=== PATIENT | female | born 1935 | race Caucasian/White ===

== ENCOUNTER 2017-10-07 08:15 | Emergency (ER) | payer MEDICARE ==
[2017-10-07 09:43] LABS: ABS Basophils 0.1 10^3/ul (0-0.2); ABS Eosinophils 0.2 10^3/ul (0-0.6); ABS Lymphocytes 1.2 10^3/ul (1.0-4.8); ABS Monocytes 0.6 10^3/ul (0-0.8); ABS Neutrophils 4.5 10^3/ul (1.5-7.7); ABS Nucleated RBC 0 10^3/ul; Eosinophil % 2.4 % (0-6); Hematocrit 37 % (35-47); Hemoglobin 12.6 g/dl (12.0-16.0); Lymphocyte % 18.1 % (25-47); Mean Corpuscular HGB Conc 34 g/dl (31-36); Mean Corpuscular Hemoglobin 32 pg (27-31); Mean Corpuscular Volume 93 fL (80-97); Mean Platelet Volume 7 um3 (7.4-10.4); Nucleated Red Blood Cells % 0.2; Platelet Count 246 10^3/ul (150-450); Red Blood Count 3.96 10^6/ul (4.0-5.4); Red Cell Distribution Width 14 % (10.5-15); White Blood Count 6.4 10^3/ul (3.5-10.8)
[2017-10-07 09:57] LABS: EGFR Non-African American 113.2 (>60)
[2017-10-07 10:10] LABS: INR 0.92 (0.77-1.02)
[2017-10-07 11:55] VITALS: BP 135/70
--- NOTE | 2017-10-08 17:40 | ED ---
Blake Mireles Angela, scribed for Glynn Han MD on 10/07/17 at 0839 . Throat Pain/Nasal Congestion - HPI Summary HPI Summary: This pt is a 82 y/o female presenting to [facility] via EMS c/o epistaxis since this morning at approximately 08:00. Pt reports her epistaxis began after she blew her nose. She notes bleeding from her left nostril. Pt denies any lightheadedness, dizziness, or SOB. Denies taking any anticoagulants. - History of Current Complaint Hx Obtained From: Patient Onset/Duration: Lasting Minutes, Still Present Severity: Moderate Associated Signs And Symptoms: Positive: Negative Cough: None - Allergies/Home Medications Allergies/Adverse Reactions: Allergies Allergy/AdvReac Type Severity Reaction Status Date / Time MS Lactose Intolerance Allergy Diarrhea Verified 11/12/16 11:49 [Lactose Intolerance] MS Metoprolol [Metoprolol] Allergy PSORASIS Verified 11/12/16 11:49 RASH PMH/Surg Hx/FS Hx/Imm Hx Endocrine/Hematology History: Denies: Hx Diabetes Cardiovascular History: Reports: Hx Deep Vein Thrombosis, Hx Hypercholesterolemia, Hx Hypertension, Other Cardiovascular Problems/Disorders - 1961 AND 1962 PHLEBITIS AFTER CHILDBIRTH RIGHT LEG Denies: Hx Pacemaker/ICD Respiratory History: Reports: Hx Chronic Obstructive Pulmonary Disease (COPD), Other Respiratory Problems/Disorders - RESPIRATORY INFECTION 3 YEARS AGO GI History: Reports: Other GI Disorders - LACTOSE INTOLERANT History: Denies: Hx Renal Disease Musculoskeletal History: Reports: Hx Arthritis - RIGHT HAND, BILATERAL TOES, Other Musculoskeletal History - BONE SPURS ON CERVICAL VERTEBRAE Sensory History: Reports: Hx Contacts or Glasses Denies: Hx Hearing Aid Opthamlomology History: Reports: Hx Contacts or Glasses Neurological History: Reports: Other Neuro Impairments/Disorders - Idiopathic neuropathy Psychiatric History: Denies: Hx Panic Disorder - Cancer History Cancer Type, Location and Year: 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 MYXOIDSARCOMA Hx Chemotherapy: No Hx Radiation Therapy: Yes - Surgical History Surgery Procedure, Year, and Place: 2004 lumpectomy left breast, [facility] [place]. 1953 TONSILLECTOMY, [facility]. 1987 HYSTERECTOMY, [place]. 2002 LEFT CATARACT EXTRACTION WITH IOL IMPLANT,. SKIN CANCER - BASAL CELL AND SQAMOUS CELL , OFFICE. 2013 - Rt CATARACT Hx Anesthesia Reactions: No - Immunization History Date of Tetanus Vaccine: unknown Date of Influenza Vaccine: 2012 Infectious Disease History: No Infectious Disease History: Denies: Traveled Outside the [place] in Last 30 Days - Family History Known Family History: Positive: Hypertension - Social History Alcohol Use: Daily Alcohol Amount: glass of wine Substance Use Type: Reports: None Smoking Status (MU): Former Smoker Type: Cigarettes Review of Systems Negative: Fever, Chills Positive: Epistaxis Negative: Shortness Of Breath Skin: Negative Neurological: Negative All Other Systems Reviewed And Are Negative: Yes Physical Exam - Summary Physical Exam Summary: VITAL SIGNS: Reviewed. GENERAL: Patient is a well-developed and nourished female who is lying comfortable in the stretcher. Patient is not in any acute respiratory distress. Pt is not on anticoagulants. HEAD AND FACE: No signs of trauma. No ecchymosis, hematomas or skull depressions. No sinus tenderness. Pt was bleeding from left nostril, which now has dried blood. There is no active bleeding currently. EYES: PERRLA, EOMI x 2, No injected conjunctiva, no nystagmus. EARS: Hearing grossly intact. Ear canals and tympanic membranes are within normal limits. MOUTH: Oropharynx within normal limits. NECK: Supple, trachea is midline, no adenopathy, no JVD, no carotid bruit, no c- spine tenderness, neck with full ROM. CHEST: Symmetric, no tenderness at palpation LUNGS: Clear to auscultation bilaterally. No wheezing or crackles. CVS: Regular rate and rhythm, S1 and S2 present, no murmurs or gallops appreciated. ABDOMEN: Soft, non-tender. No signs of distention. No rebound no guarding, and no masses palpated. Bowel sounds are normal. EXTREMITIES: FROM in all major joints, no edema, no cyanosis or clubbing. NEURO: Alert and oriented x 3. No acute neurological deficits. Speech is normal and follows commands. SKIN: Dry and warm Triage Information Reviewed: Yes Vital Signs On Initial Exam: Initial Vitals Temp Pulse Resp BP Pulse Ox 98.8 F 98 16 141/66 95 10/07/17 08:21 10/07/17 08:21 10/07/17 08:21 10/07/17 08:21 10/07/17 08:21 Vital Signs Reviewed: Yes Diagnostics - Vital Signs Vital Signs Temp Pulse Resp BP Pulse Ox 10/07/17 08:21 98.8 F 98 16 141/66 95 - Laboratory Lab Results: Lab Results 10/07/17 10/07/17 10/07/17 Range/Units 09:33 09:33 09:33 WBC 6.4 (3.5-10.8) 10^3/ul RBC 3.96 L (4.0-5.4) 10^6/ul Hgb 12.6 (12.0-16.0) g/dl Hct 37 (35-47) % MCV 93 (80-97) fL MCH 32 H (27-31) pg MCHC 34 (31-36) g/dl RDW 14 (10.5-15) % Plt Count 246 (150-450) 10^3/ul MPV 7 L (7.4-10.4) um3 Neut % (Auto) 69.5 (38-83) % Lymph % (Auto) 18.1 L (25-47) % Clark % (Auto) 9.0 (1-9) % Eos % (Auto) 2.4 (0-6) % Baso % (Auto) 1.0 (0-2) % Absolute Neuts (auto) 4.5 (1.5-7.7) 10^3/ul Absolute Lymphs (auto) 1.2 (1.0-4.8) 10^3/ul Absolute Monos (auto) 0.6 (0-0.8) 10^3/ul Absolute Eos (auto) 0.2 (0-0.6) 10^3/ul Absolute Basos (auto) 0.1 (0-0.2) 10^3/ul Absolute Nucleated RBC 0 10^3/ul Nucleated RBC % 0.2 INR (Anticoag Therapy) 0.92 (0.77-1.02) APTT 31.8 (26.0-36.3) seconds Sodium 137 (133-145) mmol/L Potassium 3.7 (3.5-5.0) mmol/L Chloride 101 (101-111) mmol/L Carbon Dioxide 31 (22-32) mmol/L Anion Gap 5 (2-11) mmol/L BUN 13 (6-24) mg/dL Creatinine 0.52 (0.51-0.95) mg/dL Est GFR ( Amer) 145.6 (>60) Est GFR (Non-Af Amer) 113.2 (>60) BUN/Creatinine Ratio 25.0 H (8-20) Glucose 101 H (70-100) mg/dL Calcium 9.6 (8.6-10.3) mg/dL Total Bilirubin 0.50 (0.2-1.0) mg/dL AST 14 (13-39) U/L ALT 10 (7-52) U/L Alkaline Phosphatase 73 (34-104) U/L Total Protein 6.6 (6.4-8.9) g/dL Albumin 4.1 (3.2-5.2) g/dL Globulin 2.5 (2-4) g/dL Albumin/Globulin Ratio 1.6 (1-3) Result Diagrams: 10/07/17 09:33 10/07/17 09:33 Lab Statement: Any lab studies that have been ordered have been reviewed, and results considered in the medical decision making process. Re-Evaluation - Re-Evaluation First Eval Re-Evaluation Time: 10:17 Comment: Joined tongue blades removed from nose. Pt is without active bleeding. EENT Course/Dx - Course Course Of Treatment: This pt is a 82 y/o female presenting to [facility] via EMS c/o epistaxis since this morning at approximately 08:00. Pt reports her epistaxis began after she blew her nose. She notes bleeding from her left nostril. Pt denies any lightheadedness, dizziness, or SOB. Denies taking any anticoagulants. Test results without any significant abnormalities. Since arrival, pts epistaxis has resolved. The pt was observed for a couple of hours in the ED and the epistaxis did not return. Therefore she will be discharged home with follow up from her PCP. Pt is hemodynamically stable, alert and oriented x3. - Differential Diagnoses Differential Diagnoses: Epistaxis, Foreign Body, Sinusitis - Diagnoses Provider Diagnoses: Epistaxis Discharge - Discharge Plan Condition: Stable Disposition: HOME Patient Education Materials: Nosebleed (ED) Referrals: Rajinder Pearson MD [Primary Care Provider] - 3 Days Additional Instructions: Please follow up with your primary care provider. RETURN TO THE ED FOR ANY WORSENING SYMPTOMS. The documentation as recorded by the Blake appiah Angela accurately reflects the service I personally performed and the decisions made by , Glynn Han MD.
== END 2017-10-07 11:53 | disposition home or self-care (01) ==
LOC: ED 08:15
DX: R04.0 Epistaxis (principal); Z87.891 Personal history of nicotine dependence; Z88.8 Allergy status to other drugs, medicaments and biological substances
CPT/HCPCS: 36415; 80053; 85025; 85610; 85730; 99282

== ENCOUNTER 2017-10-10 15:21 | Emergency (ER) | payer MEDICARE ==
--- OUTSIDE RECORDS SUMMARY | 2017-10-10 15:57 | XMS REPORT ---
:1935 External Reference #:[id number] Author Organization [facility] Address [address] [place] [address] Phone [phone] Care Team Providers Name Role Phone Elle Pearson MD Care Team Information Hand I Cutter Unavailable Elle Pearson MD Primary Care Physician Unavailable Payers Type Date Identification Numbers Payment Provider Subscriber Commercial Effective: Policy Number: [employer] Gustavo Devlin 2016 [id number] Group Number: [id number] [address] [id number] PayID: [id number] [place] [address] Problems Date Description Provider Status Onset: 07/01/2011 Disorder of skin Ellyn White M.D. Active Onset: 07/24/2011 Counseling Ellyn White M.D. Active Onset: 12/23/2011 Benign essential hypertension Elle Pearson M.D. Active Onset: 12/23/2011 Palpitations Elle Pearson M.D. Active Onset: 03/18/2012 Eruption Elle Pearson M.D. Active Onset: 05/15/2012 Hyperlipidemia Elle Pearson M.D. Active Onset: 11/19/2012 Cataract Elle Pearson M.D. Active Onset: 01/12/2013 Flatulence, eructation and gas pain Elle Pearson M.D. Active Onset: 07/13/2013 Dyspnea Elle Pearson M.D. Active Onset: 09/07/2014 Acute bronchitis Elle Pearson M.D. Active Onset: 09/19/2014 Cough Elle Pearson M.D. Active Onset: 07/15/2015 Essential hypertension Elle Pearson M.D. Active Onset: 07/15/2015 Skin sensation disturbance Elle Pearson M.D. Active Onset: 11/13/2015 Allergic rhinitis Elle Pearson M.D. 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 Social History Type Date Description Comments Cigarette Use Former Cigarette Smoker Smoking Patient is a former smoker Allergies, Adverse Reactions, Alerts Date Description Reaction Status Severity Comments 05/15/2012 Metoprolol RASH active 04/19/2014 Lactulose active Medications Medication Date Status Form Strength Qnty SIG Indications Ordering Provider Oxygen Therapy 04/02 Active needs Elle Perez /2016 portable yessenia Pearsona Byron tor for her o2 Ventolin HFA 05/27 Active Aerosol 108(90Bas 17uni 1 puff q Elle Perez e) ts 4hrsprn Lili, mcg/Act M.DKarena Symbicort 11/12 Active Aerosol 160-4.5mc 1unit 1 puff Yeny Ruth g/Act s twice a Damian, COMMUNICATION AND OUTREACH MANAGER day Potassium 03/18 Active Tablets ER 10Meq 90tab take 1 Elle Perez Chloride ER s tablet Breiman, daily M.DKarena Hydrochlorothiazi 03/18 Active Tablets 25mg 90tab Take 1 Elle Perez de s Tablet Breiman, Daily M.DKarena Centrum Silver 02/13 Active Tablets 1 po qd Family /[facility] Clobetasol Active Ointment 0.05% apply to Unknown Propionate /0000 affected area bid Naproxen 01/23 Hx Tablets 500mg 60tab 1 by Jonelle /2016 s mouth Mercedes, - twice a AUDIO VIDEO REPAIRER 02/27 day with food Tamiflu 09/24 Hx Capsules 75mg 10cap 1 by Tanvir Burton /2016 s mouth Lidia, - twice M.D. 01/23 Nebulizer With 09/24 Hx J44.1 Марина Burton Tubing And Mouth /2016 Lidia, Piece - M.D. 02/27 Xopenex 09/24 Hx Nebulizer 0.31mg/3M 72ml use J44.1 Марина L. /2016 L nebulizer Lidia, - every 4 M.D. 02/27 hours needed for wheezing, cough Clotrimazole 08/05 Hx Lozenges 10mg 40uni one Everette A. ts lozenge 4 Darlow, - times a M.D. 01/23 day 10 days Spiriva 05/27 Hx Capsules 18mcg 90cap inhale Elle Perez [employer] /2015 s the Breiman, - contents M.D. 06/26 of capsule in the handihale r once daily Prednisone 05/27 Hx Tablets 10mg 30tab 2 twice a Elle Chris s day x 3 Breiman, - days then M.D. 06/26 2 in the morning, 1 at night x 3 days then 1 twice a day x 3 days then 1 every day x 3 Benzonatate 05/27 Hx Capsules 100mg 30cap 1 by Elle Perez s mouth Lydiaimajerrica, - twice M.D. 06/26 daily Fluticasone 04/25 Hx Suspension 50mcg/Act 48gm 2 sprays H69.83 Jacki Propionate in each [facility], COMMUNICATION AND OUTREACH MANAGER - nostril 05/27 everyday Prevnar 13 04/18 Hx Suspension .5ml Inject Elle J. one dose Lili, - M.D. 04/25 Spacer For Mdi 01/17 Hx 1unit for use Elle Chris /2015 s with Lili, - symbicort M.D. 04/25 inhaler /2015 Handicap [address]ing 12/21 Hx needed Elle J. Permit due to: Lili, - arthritis M.D. 02/27 permanent /2017 ly dt Claritin 11/12 Hx Capsules 10mg 30cap use 1 by H69.83 Elle Perez s mouth q.d Lili, - M.D. 05/27 Proair HFA 09/18 Hx Aerosol 108(90Bas 1unit 2 puffs Elle Perez /2015 e) s every 4 Lydiaimajerrica, - mcg/Act hours as M.D. 11/12 needed Zithromax Z-Josafat 09/11 Hx Tablets 250mg 1Pack as Elle Perez Anders Corral M.D. 09/18 Medrol (Josafat) 09/11 Hx Tablets 4mg 1tabs use as Elle Perez Anders Corrla M.D. 09/18 Amlodipine 07/15 Hx Tablets 5mg 90tab 1 by Elle Conley /2014 s mouth Lili, - every day M.DKarena 11/12 Zithromax Z-Josafat 09/07 Hx Tablets 250mg 1Pack as Elle Perez Anders Corral M.D. 09/19 Amlodipine 08/10 Hx Tablets 2.5mg 90tab 1 by Elle Conley /2013 s mouth Lili, - every day M.DKarena 07/15 Lisinopril 04/19 Hx Tablets 5mg 30tab 1 po qd Elle Perez /2013 s Anders Pearson M.D. 05/11 Metoprolol 01/12 Hx Tablets ER 25mg 90tab / po Elle Perez Succinate ER /2011 24HR s bid Anders Pearson M.D. 03/18 Metoprolol 12/22 Hx Tablets 12.5 30tab take 1 Elle Perez Tartrate /2011 s tablet by Anders Pearson M.DKarena 01/12 twice a day Clobetasol 07/24 Hx Cream 0.05% 30gm apply bid 709.8 Ellyn Valle Anders White M.D. 12/22 Note 04/26 Hx gustavo Perez participa Anders Pearson in M.DKarena 12/22 physical activity dt Azithromycin 12/20 Hx Tablets 250mg 10tab 2 po qd Rakesh F. /2010 s for 3 Hanh, Anders tomlinson MNella 12/30 then 1 po qd for 4 days Proair HFA 12/20 Hx Aerosol 108(90Bas 1unit inhale 2 Rakesh F. e) mcg/ac s puffs by Hanh - mouth M.DKarena 04/26 every hours Hydrochlorothiazi 02/13 Hx Tablets 25mg 90tab 1 po qd Rakesh F. de Anders Mariscal M.D. 12/22 Hydrochlorothiazi 01/19 Hx Tablets 12.5mg 30tab 1 po qd Elle nguyen Anders Jiang M.D. 03/15 Aspir-81 01/[address] 81mg [facility] [place] [facility] Arimidex 01/04 Hx Tablets 1mg [facility] [place] [facility] Ketek 03/07 Hx Tablets 400mg 10tab 2 PO qd Everette A. /2004 s Anders Pabon M.D. 03/12 Tussi-12 03/07 Hx Suspension 30mg;4 100C 1 TSP bid Everette Bloom mg/5 ML Anders Pabon M.D. 03/17 Keflex 01/10 Hx 500 20uni bid Daily Shruti ts as Amador, - Directed AUDIO VIDEO REPAIRER-C 02/09 For Days Robitussin ac 01/10 Hx Liq 4Oz 09/09-1 TSP Shruti PO Q4HS Amador, - prn Cough AUDIO VIDEO REPAIRER-C 02/09 Indocin 04/23 Hx 25mg Cap 30uni 1 PO tid Everette A. ts With Food Anders Pabon M.D. 05/03 Zithromax 04/04 Hx 250mg 6unit 2 Tabs Elvin Anand /1999 s Day 1 Anders Lopez M.D. 04/09 1 Tab qd Days 2 Thru 5 Estrogen 06/15 Hx .1mg 1 PO qd Elle Perez /Anders James M.D. 04/14 Guaifenesin Hx Tablets 400mg 1 po Unknown /0000 q4hrs prn - 06/26 Medications Administered in Office Medication Date Status Form Strength Qnty SIG Indications Ordering Provider TB Intradermal Administered Injection Do Test IVC Ponce Immunizations CPT Code Status Date Vaccine Lot # [id number] Given 05/14/2017 Pneumococcal Immunization 55204 Given 05/14/2017 High-Dose, Influenza Virus Vacccine-fluzone 65 and older 45854 Given 05/08/2016 High-Dose, Influenza Virus Vacccine-fluzone 65 and older 34761 Given 04/20/2016 Pneumococcal Conjugate Vacc-13 08361 Given 05/23/2015 Influenza Vac, Quadriv[place], [place] [address] Given 06/02/2014 DO Not Use Split Influenza Virus Vaccine 40938 Given 05/28/2013 DO Not Use Split Influenza Virus Vaccine 08188 Given 05/28/2013 DO Not Use Split Influenza Virus Vaccine 65764 Given 05/15/2012 High-Dose, Influenza Virus Vacccine-fluzone 65 [id number] and older 71033 Given 06/08/2011 DO Not Use Split Influenza Virus Vaccine 47126 Given 06/06/2011 DO Not Use Split Influenza Virus Vaccine 73927 Given 06/12/2010 DO Not Use Split Influenza Virus Vaccine [id number] 26541 Given 01/11/2008 Zostivax [id number] 56967 Given 04/14/2007 Tetanus And Diptheria Adult Preservative Free [id number] >7Yrs 61540 Given 04/14/2007 MMR Virus Immunization [id number] 72876 Given 06/29/2002 Influenza Immunization 24823 Given 06/29/2002 DO Not Use Split Influenza Virus Vaccine 46047 Given 07/07/2001 Pneumococcal Immunization 62568 Given 07/07/2001 Influenza Immunization 76416 Given 07/07/2001 DO Not Use Split Influenza Virus Vaccine 93088 Given 06/16/1997 Influenza Immunization Vital Signs Date Vital Result Comment 10/08/2017 BP Systolic 142 mmHg BP Diastolic 82 mmHg Heart Rate 80 /min Body Temperature 98.1 F Respiratory Rate 18 /min Weight 199.00 lb 03/28/2017 BP Systolic 132 mmHg BP Diastolic 76 mmHg Heart Rate 76 /min Body Temperature 98.2 F O2 % BldC Oximetry 98 % Weight 180.38 lb 02/27/2017 BP Systolic 112 mmHg BP Diastolic 82 mmHg Heart Rate 80 /min Irr Body Temperature 97.7 F O2 % BldC Oximetry 91 % 2 liters o2 Height 67.5 inches 5'7.50" Weight 174.31 lb BMI (Body Mass Index) 26.9 kg/m2 01/23/2017 BP Systolic 144 mmHg BP Diastolic 82 mmHg Heart Rate 96 /min Body Temperature 96.8 F Height 67.5 inches 5'7.50" Weight 186.38 lb BMI (Body Mass Index) 28.8 kg/m2 10/15/2016 BP Systolic 120 mmHg BP Diastolic 70 mmHg Heart Rate 68 /min Body Temperature 98.3 F Respiratory Rate 18 /min Height 67.5 inches 5'7.50" Weight 197.00 lb BMI (Body Mass Index) 30.4 kg/m2 09/27/2016 BP Systolic 128 mmHg BP Diastolic 60 mmHg Heart Rate 72 /min Body Temperature 97.4 F O2 % BldC Oximetry 93 % Height 67.5 inches 5'7.50" Weight 195.00 lb BMI (Body Mass Index) 30.1 kg/m2 09/24/2016 BP Systolic 120 mmHg BP Diastolic 80 mmHg Heart Rate 80 /min Body Temperature 98.1 F Respiratory Rate 18 /min Height 67.5 inches 5'7.50" Weight 194.00 lb BMI (Body Mass Index) 29.9 kg/m2 08/05/2016 BP Systolic 126 mmHg BP Diastolic 70 mmHg Heart Rate 94 /min Body Temperature 97.4 F Respiratory Rate 20 /min O2 % BldC Oximetry 92 % Height 67.5 inches 5'7.50" 07/26/2016 BP Systolic 122 mmHg BP Diastolic 64 mmHg Heart Rate 80 /min Body Temperature 98.2 F Respiratory Rate 20 /min O2 % BldC Oximetry 92 % Height 67.5 inches 5'7.50" Weight 202.00 lb BMI (Body Mass Index) 31.2 kg/m2 06/26/2016 BP Systolic 120 mmHg BP Diastolic 64 mmHg Heart Rate 90 /min Body Temperature 97.4 F Respiratory Rate 20 /min O2 % BldC Oximetry 92 % Weight 205.50 lb 05/27/2016 BP Systolic 124 mmHg BP Diastolic 80 mmHg Heart Rate 76 /min Body Temperature 98.7 F Respiratory Rate 20 /min O2 % BldC Oximetry 92 % Weight 210.00 lb 05/18/2016 BP Systolic 136 mmHg BP Diastolic 60 mmHg Heart Rate 120 /min Body Temperature 101.5 F Respiratory Rate 20 /min O2 % BldC Oximetry 85 % Weight 212.50 lb 04/25/2016 BP Systolic 120 mmHg BP Diastolic 80 mmHg BP Systolic Recheck 150 mmHg Rt BP Diastolic Recheck 80 mmHg Rt Heart Rate 68 /min Body Temperature 98.0 F Respiratory Rate 18 /min Weight 214.00 lb 02/21/2016 BP Systolic 140 mmHg BP Diastolic 80 mmHg Heart Rate 64 /min Body Temperature 97.6 F Respiratory Rate 20 /min Weight 207.00 lb 11/13/2015 BP Systolic 140 mmHg BP Diastolic 80 mmHg Heart Rate 96 /min Body Temperature 98.6 F Respiratory Rate 22 /min O2 % BldC Oximetry 87 % Weight 204.00 lb 09/18/2015 BP Systolic 136 mmHg BP Diastolic 80 mmHg Heart Rate 77 /min Body Temperature 97.6 F Respiratory Rate 20 /min O2 % BldC Oximetry 91 % 09/11/2015 BP Systolic 140 mmHg BP Diastolic 70 mmHg Heart Rate 100 /min Body Temperature 97.6 F Respiratory Rate 20 /min O2 % BldC Oximetry 90 % Weight 204.00 lb 08/02/2015 BP Systolic 126 mmHg BP Diastolic 80 mmHg Heart Rate 70 /min Body Temperature 95.3 F Respiratory Rate 18 /min Weight 203.00 lb 07/15/2015 BP Systolic 154 mmHg BP Diastolic 60 mmHg Heart Rate 108 /min Body Temperature 98.7 F Respiratory Rate 16 /min Weight 203.00 lb 07/05/2015 BP Systolic 120 mmHg BP Diastolic 80 mmHg Heart Rate 88 /min Body Temperature 98.2 F Respiratory Rate 18 /min Weight 205.00 lb 09/30/2014 BP Systolic 136 mmHg BP Diastolic 64 mmHg Heart Rate 82 /min Body Temperature 98.5 F Respiratory Rate 18 /min O2 % BldC Oximetry 96 % 09/19/2014 BP Systolic 140 mmHg BP Diastolic 80 mmHg Heart Rate 66 /min Body Temperature 99.2 F Respiratory Rate 18 /min O2 % BldC Oximetry 97 % Weight 213.00 lb 09/07/2014 BP Systolic 144 mmHg BP Diastolic 88 mmHg Heart Rate 100 /min Body Temperature 98.7 F Respiratory Rate 17 /min O2 % BldC Oximetry 96 % R/A, SOB Weight 213.00 lb 08/10/2014 BP Systolic 164 mmHg BP Diastolic 90 mmHg Heart Rate 98 /min Body Temperature 97.4 F Respiratory Rate 18 /min Height 67.25 inches 5'7.25" Weight 214.00 lb BMI (Body Mass Index) 33.3 kg/m2 05/11/2014 BP Systolic 138 mmHg BP Diastolic 84 mmHg Heart Rate 80 /min Body Temperature 98.3 F Respiratory Rate 16 /min Height 67.25 inches 5'7.25" Weight 212.00 lb BMI (Body Mass Index) 33.0 kg/m2 04/19/2014 BP Systolic 152 mmHg BP Diastolic 90 mmHg Heart Rate 68 /min Body Temperature 97.0 F Respiratory Rate 16 /min Height 67.25 inches 5'7.25" Weight 211.12 lb BMI (Body Mass Index) 32.8 kg/m2 07/13/2013 BP Systolic 136 mmHg BP Diastolic 80 mmHg Heart Rate 100 /min Body Temperature 98.8 F Respiratory Rate 20 /min O2 % BldC Oximetry 91 % Height 67.25 inches 5'7.25" Weight 215.00 lb BMI (Body Mass Index) 33.4 kg/m2 01/12/2013 BP Systolic 152 mmHg BP Diastolic 82 mmHg Heart Rate 80 /min Body Temperature 98.7 F Respiratory Rate 16 /min Height 67.25 inches 5'7.25" Weight 215.00 lb BMI (Body Mass Index) 33.4 kg/m2 11/18/2012 BP Systolic 160 mmHg BP Diastolic 90 mmHg Heart Rate 84 /min Body Temperature 96.8 F Respiratory Rate 17 /min Height 67.25 inches 5'7.25" Weight 215.00 lb BMI (Body Mass Index) 33.4 kg/m2 05/15/2012 BP Systolic 150 mmHg BP Diastolic 72 mmHg Heart Rate 76 /min Body Temperature 97.7 F Height 67.25 inches 5'7.25" Weight 212.00 lb BMI (Body Mass Index) 33.0 kg/m2 03/18/2012 BP Systolic 124 mmHg BP Diastolic 70 mmHg Heart Rate 78 /min Body Temperature 97.6 F Height 67.5 inches 5'7.50" Weight 215.00 lb BMI (Body Mass Index) 33.2 kg/m2 01/13/2012 BP Systolic 130 mmHg BP Diastolic 70 mmHg Heart Rate 72 /min Height 67.5 inches 5'7.50" Weight 216.00 lb BMI (Body Mass Index) 33.3 kg/m2 12/23/2011 BP Systolic 152 mmHg BP Diastolic 78 mmHg Heart Rate 84 /min Height 67.5 inches 5'7.50" Weight 214.00 lb BMI (Body Mass Index) 33.0 kg/m2 07/24/2011 BP Systolic 138 mmHg BP Diastolic 80 mmHg Heart Rate 66 /min Height 67.5 inches 5'7.50" Weight 216.00 lb BMI (Body Mass Index) 33.3 kg/m2 07/01/2011 BP Systolic 130 mmHg BP Diastolic 70 mmHg Heart Rate 66 /min Body Temperature 98.0 F Respiratory Rate 20 /min Height 67.5 inches 5'7.50" Weight 210.00 lb BMI (Body Mass Index) 32.4 kg/m2 04/26/2011 BP Systolic 150 mmHg BP Diastolic 80 mmHg Heart Rate 76 /min Body Temperature 97.4 F Respiratory Rate 20 /min Height 67.5 inches 5'7.50" Weight 215.00 lb BMI (Body Mass Index) 33.2 kg/m2 12/20/2010 BP Systolic 128 mmHg BP Diastolic 70 mmHg Heart Rate 90 /min Body Temperature 98.0 F O2 % BldC Oximetry 92 % Height 67.5 inches 5'7.50" Weight 209.00 lb BMI (Body Mass Index) 32.2 kg/m2 03/16/2010 BP Systolic 152 mmHg BP Diastolic 92 mmHg Heart Rate 80 /min Height 67.5 inches 5'7.50" Weight 208.00 lb BMI (Body Mass Index) 32.1 kg/m2 05/22/2009 BP Systolic 142 mmHg BP Diastolic 74 mmHg Heart Rate 76 /min Height 67.5 inches 5'7.50" Weight 208.00 lb BMI (Body Mass Index) 32.1 kg/m2 03/15/2009 BP Systolic 126 mmHg BP Diastolic 66 mmHg Heart Rate 72 /min Height 67.5 inches 5'7.50" Weight 207.00 lb BMI (Body Mass Index) 31.9 kg/m2 02/13/2009 BP Systolic 150 mmHg BP Diastolic 90 mmHg Heart Rate 80 /min Height 67.5 inches 5'7.50" Weight 212.00 lb BMI (Body Mass Index) 32.7 kg/m2 01/04/2009 BP Systolic 140 mmHg BP Diastolic 80 mmHg Heart Rate 80 /min Weight 213.00 lb 04/14/2007 BP Systolic 128 mmHg BP Diastolic 82 mmHg Heart Rate 74 /min Body Temperature 97.7 F Height 67.5 inches 5'7.50" Weight 205.00 lb BMI (Body Mass Index) 31.6 kg/m2 03/07/2005 BP Systolic 96 mmHg BP Diastolic 64 mmHg Heart Rate 76 /min Body Temperature 98.8 F Height 67.5 inches 5'7.50" Weight 201.00 lb BMI (Body Mass Index) 31.0 kg/m2 04/20/2003 BP Systolic 132 mmHg BP Diastolic 80 mmHg Heart Rate 84 /min Body Temperature 97.9 F Height 67.5 inches 5'7.50" Weight 212.00 lb BMI (Body Mass Index) 32.7 kg/m2 02/09/2003 BP Systolic 142 mmHg BP Diastolic 80 mmHg Heart Rate 72 /min Height 67.5 inches 5'7.50" Weight 212.00 lb BMI (Body Mass Index) 32.7 kg/m2 01/10/2003 BP Systolic 140 mmHg BP Diastolic 82 mmHg Body Temperature 97.1 F Height 67.75 inches 5'7.75" Weight 213.00 lb BMI (Body Mass Index) 33.4 kg/m2 05/04/2001 BP Systolic 140 mmHg BP Diastolic 80 mmHg Heart Rate 76 /min Height 67.75 inches 5'7.75" Weight 210.00 lb BMI (Body Mass Index) 32.9 kg/m2 04/23/2001 BP Systolic 124 mmHg BP Diastolic 70 mmHg Height 67.75 inches 5'7.75" Weight 210.00 lb BMI (Body Mass Index) 32.9 kg/m2 04/04/2000 BP Systolic 124 mmHg LA SM Cuff BP Diastolic 74 mmHg LA SM Cuff Body Temperature 97.3 F Height 67.75 inches 5'7.75" Weight 196.00 lb BMI (Body Mass Index) 30.7 kg/m2 01/28/2000 BP Systolic 128 mmHg BP Diastolic 82 mmHg Heart Rate 72 /min Height 67.75 inches 5'7.75" Weight 196.00 lb BMI (Body Mass Index) 30.7 kg/m2 06/15/1997 BP Systolic 130 mmHg BP Diastolic 76 mmHg Height 67.75 inches 5'7.75" Weight 181.00 lb Results Test Date Test Result H/L Range Note CBC Auto Diff 10/07/2017 White Blood Count 6.4 10^3/uL 3.5-10.8 Red Blood Count 3.96 10^6/uL Low 4.0-5.4 Hemoglobin 12.6 g/dL 12.0-16.0 Hematocrit 37 % 35-47 Mean Corpuscular Volume 93 fL 80-97 Mean Corpuscular Hemoglobin 32 pg High 27-31 Mean Corpuscular HGB Conc 34 g/dL 31-36 Red Cell Distribution Width 14 % 10.5-15 Platelet Count 246 10^3/uL 150-450 Mean Platelet Volume 7 um3 Low 7.4-10.4 Abs Neutrophils 4.5 10^3/uL 1.5-7.7 Abs Lymphocytes 1.2 10^3/uL 1.0-4.8 Abs Monocytes 0.6 10^3/uL 0-0.8 Abs Eosinophils 0.2 10^3/uL 0-0.6 Abs Basophils 0.1 10^3/uL 0-0.2 Abs Nucleated RBC 0 10^3/uL Granulocyte % 69.5 % 38-83 Lymphocyte % 18.1 % Low 25-47 Monocyte % 9.0 % 1-9 Eosinophil % 2.4 % 0-6 Basophil % 1.0 % 0-2 Nucleated Red Blood Cells % 0.2 Comp Metabolic Panel 10/07/2017 Sodium 137 mmol/L 133-145 Potassium 3.7 mmol/L 3.5-5.0 Chloride 101 mmol/L 101-111 Co2 Carbon Dioxide 31 mmol/L 22-32 Anion Gap 5 mmol/L 2-11 Glucose 101 mg/dL High 70-100 Blood Urea Nitrogen 13 mg/dL 6-24 Creatinine 0.52 mg/dL 0.51-0.95 BUN/Creatinine Ratio 25.0 High 8-20 Calcium 9.6 mg/dL 8.6-10.3 Total Protein 6.6 g/dL 6.4-8.9 Albumin 4.1 g/dL 3.2-5.2 Globulin 2.5 g/dL 2-4 Albumin/Globulin Ratio 1.6 1-3 Total Bilirubin 0.50 mg/dL 0.2-1.0 Alkaline Phosphatase 73 U/L 34-104 Alt 10 U/L 7-52 Ast 14 U/L 13-39 Egfr Non- 113.2 >60 Egfr 145.6 >60 1 Inr/Protime 10/07/2017 Inr 0.92 0.77-1.02 Laboratory test 10/07/2017 Partial Thrombo 31.8 seconds 26.0-36.3 finding Time PTT Laboratory test 11/12/2016 Cytology Non-Laborer [employer] SEE RESULT BELOW 2 finding CBC Auto Diff 10/29/2016 White Blood Count 13.8 10^3/uL High 3.5-10.8 Red Blood Count 4.96 10^6/uL 4.0-5.4 Hemoglobin 15.1 g/dL 12.0-16.0 Hematocrit 45 % 35-47 Mean Corpuscular Volume 91 fL 80-97 Mean Corpuscular Hemoglobin 30 pg 27-31 Mean Corpuscular HGB Conc 33 g/dL 31-36 Red Cell Distribution Width 14 % 10.5-15 Platelet Count 285 10^3/uL 150-450 Mean Platelet Volume 8 um3 7.4-10.4 Abs Neutrophils 6.6 10^3/uL 1.5-7.7 Abs Lymphocytes 5.7 10^3/uL High 1.0-4.8 Abs Monocytes 1.1 10^3/uL High 0-0.8 Abs Eosinophils 0.2 10^3/uL 0-0.6 Abs Basophils 0.1 10^3/uL 0-0.2 Abs Nucleated RBC 0.01 10^3/uL Granulocyte % 47.7 % 38-83 Lymphocyte % 41.3 % 25-47 Monocyte % 8.3 % 1-9 Eosinophil % 1.6 % 0-6 Basophil % 1.1 % 0-2 Nucleated Red Blood Cells % 0.1 Comp Metabolic Panel 10/29/2016 Sodium 134 mmol/L 133-145 Potassium 4.3 mmol/L 3.5-5.0 Chloride 96 mmol/L Low 101-111 Co2 Carbon Dioxide 30 mmol/L 22-32 Anion Gap 8 mmol/L 2-11 Glucose 106 mg/dL High 70-100 Blood Urea Nitrogen 9 mg/dL 6-24 Creatinine 0.57 mg/dL 0.51-0.95 BUN/Creatinine Ratio 15.8 8-20 Calcium 10.1 mg/dL 8.6-10.3 Total Protein 7.7 g/dL 6.4-8.9 Albumin 4.2 g/dL 3.2-5.2 Globulin 3.5 g/dL 2-4 Albumin/Globulin Ratio 1.2 1-3 Total Bilirubin 0.50 mg/dL 0.2-1.0 Alkaline Phosphatase 93 U/L 34-104 Alt 12 U/L 7-52 Ast 15 U/L 13-39 Egfr Non- 102.1 >60 Egfr 131.2 >60 3 Laboratory test finding 10/21/2016 Cytology Non-[employer]orer [employer] SEE RESULT BELOW 4 Miscellaneous Test See Comment 5 Laboratory test finding 10/15/2016 BUN 13 mg/dL 6-26 Creatinine 0.6 mg/dL 0.6-1.4 Influenza A&B-fma 09/24/2016 Influenza A pos Influenza B neg Laboratory test finding 08/22/2016 Hemoglobin A1c (Glyco HGB) 5.9 % Less than 6.0 6 Erythrocyte Sed Rate 30 mm/Hr 0-40 7 CA 27-29 33.33 U/mL 3.5-38.6 8 Syphillis Igg W/Reflex RPR Nonreactive Nonreactive 9 Anti Ssa/Ro <0.2 U 10 Anti SSB LA <0.2 U 11 Lyme Disease Serology Negative Negative 12 Protein Electrophoresis 08/22/2016 Total Protein(Pep) 7.3 g/dL 6.3 - 7.9 Albumin 3.6 g/dL 3.4-4.7 Alpha-1 Globulin 0.3 g/dL 0.1-0.3 Alpha-2 Globulin 1.3 g/dL 0.6-1.0 Beta Globulin 1.1 g/dL 0.7-1.2 Gamma Globulin 1.0 g/dL 0.6-1.6 Albumin/Globulin Ratio 0.96 Impression See Comment 13 Connective Tissue Panel 08/22/2016 Anti-Nuclear Antibody 0.3 U 14 Cyclic Citrullinated Peptide <15.6 U 15 Interpretation See Comment 16 Laboratory test finding 08/22/2016 Methylmalonic Acid Mma 0.18 nmol/mL & lt;=0.40 17 Cryoglobulin Negative %ppt Negative 18 CBC Auto Diff 06/24/2016 White Blood Count 9.8 10^3/uL 3.5-10.8 Red Blood Count 4.55 10^6/uL 4.0-5.4 Hemoglobin 14.2 g/dL 12.0-16.0 Hematocrit 43 % 35-47 Mean Corpuscular Volume 94 fL 80-97 Mean Corpuscular Hemoglobin 31 pg 27-31 Mean Corpuscular HGB Conc 33 g/dL 31-36 Red Cell Distribution Width 14 % 10.5-15 Platelet Count 409 10^3/uL 150-450 Mean Platelet Volume 8 um3 7.4-10.4 Abs Neutrophils 3.4 10^3/uL 1.5-7.7 Abs Lymphocytes 5.1 10^3/uL High 1.0-4.8 Abs Monocytes 0.9 10^3/uL High 0-0.8 Abs Eosinophils 0.1 10^3/uL 0-0.6 Abs Basophils 0.2 10^3/uL 0-0.2 Abs Nucleated RBC 0.01 10^3/uL Granulocyte % 34.5 % Low 38-83 Lymphocyte % 52.7 % High 25-47 Monocyte % 9.2 % High 1-9 Eosinophil % 1.1 % 0-6 Basophil % 2.5 % High 0-2 Nucleated Red Blood Cells % 0.1 Comp Metabolic Panel 06/24/2016 Sodium 138 mmol/L 133-145 Potassium 4.2 mmol/L 3.5-5.0 Chloride 101 mmol/L 101-111 Co2 Carbon Dioxide 31 mmol/L 22-32 Anion Gap 6 mmol/L 2-11 Glucose 94 mg/dL 70-100 Blood Urea Nitrogen 11 mg/dL 6-24 Creatinine 0.56 mg/dL 0.51-0.95 BUN/Creatinine Ratio 19.6 8-20 Calcium 9.7 mg/dL 8.6-10.3 Total Protein 7.4 g/dL 6.4-8.9 Albumin 4.2 g/dL 3.2-5.2 Globulin 3.2 g/dL 2-4 Albumin/Globulin Ratio 1.3 1-3 Total Bilirubin 0.50 mg/dL 0.2-1.0 Alkaline Phosphatase 89 U/L 34-104 Alt 16 U/L 7-52 Ast 16 U/L 13-39 Egfr Non- 104.2 >60 Egfr 134.0 >60 19 Manual Differential 06/24/2016 Neutrophil % 37 % Low 38-83 Lymphocytes % 30 % 25-47 Monocytes % 2 % 0-13 Eosinophils % 1 % 0-6 Reactive Lymph % 30 % High 0-6 20 RBC Morphology Normal Normal Laboratory test finding 06/24/2016 Pathologist Review (SEE NOTE) 21 CA 27-29 36.31 U/mL 3.5-38.6 22 Laboratory test 05/18/2016 Sputum Culture SEE RESULT BELOW 23 finding & Gram Stain Laboratory test 05/18/2016 C Reactive Protein 215.22 mg/L High < 5.00 24 finding Blood Culture SEE RESULT BELOW 25 Manual Differential 05/18/2016 Immature Granulocytes 8 % 0-9 Neutrophil % 55 % 38-83 Band % 8 % 0-8 Lymphocytes % 24 % Low 25-47 Monocytes % 12 % 0-13 Eosinophils % 1 % 0-6 RBC Morphology Normal Normal Laboratory test finding 05/18/2016 Troponin I 0.00 ng/mL <0.03 26 B-Type Natriuretic Peptide BNP 105 pg/mL High 27 Comp Metabolic Panel 05/18/2016 Sodium 129 mmol/L Low 133-145 Potassium 3.6 mmol/L 3.5-5.0 Chloride 94 mmol/L Low 101-111 Co2 Carbon Dioxide 25 mmol/L 22-32 Anion Gap 10 mmol/L 2-11 Glucose 120 mg/dL High 70-100 Blood Urea Nitrogen 10 mg/dL 6-24 Creatinine 0.51 mg/dL 0.51-0.95 BUN/Creatinine Ratio 19.6 8-20 Calcium 9.5 mg/dL 8.6-10.3 Total Protein 7.5 g/dL 6.4-8.9 Albumin 4.0 g/dL 3.2-5.2 Globulin 3.5 g/dL 2-4 Albumin/Globulin Ratio 1.1 1-3 Total Bilirubin 1.80 mg/dL High 0.2-1.0 Alkaline Phosphatase 134 U/L High 34-104 Alt 59 U/L High 7-52 Ast 57 U/L High 13-39 Egfr Non- 116.0 >60 Egfr 149.2 >60 28 Laboratory test finding 05/18/2016 Lactic Acid 0.7 mmol/L 0.5-2.0 29 CBC Auto Diff 05/18/2016 White Blood Count 12.4 10^3/uL High 3.5-10.8 Red Blood Count 4.30 10^6/uL 4.0-5.4 Hemoglobin 13.4 g/dL 12.0-16.0 Hematocrit 41 % 35-47 Mean Corpuscular Volume 95 fL 80-97 Mean Corpuscular Hemoglobin 31 pg 27-31 Mean Corpuscular HGB Conc 33 g/dL 31-36 Red Cell Distribution Width 13 % 10.5-15 Platelet Count 243 10^3/uL 150-450 Mean Platelet Volume 8 um3 7.4-10.4 Abs Neutrophils 7.5 10^3/uL 1.5-7.7 Abs Lymphocytes 3.1 10^3/uL 1.0-4.8 Abs Monocytes 1.7 10^3/uL High 0-0.8 Abs Eosinophils 0 10^3/uL 0-0.6 Abs Basophils 0.1 10^3/uL 0-0.2 Abs Nucleated RBC 0 10^3/uL Granulocyte % 60.1 % 38-83 Lymphocyte % 25.2 % 25-47 Monocyte % 13.5 % High 1-9 Eosinophil % 0.3 % 0-6 Basophil % 0.9 % 0-2 Nucleated Red Blood Cells % 0 Laboratory test finding 07/15/2015 Vitamin B-12 763 pg/mL 230-1050 Spep Serum Protein 07/15/2015 Protein, Total, Serum 7.1 g/dL 6.0-8.5 30 Electrophoresis Albumin 4.1 g/dL 3.2-5.6 30 Wrfik-0-Vlnvoamm 0.2 g/dL 0.1-0.4 30 Zeyua-9-Acpdjhem 0.8 g/dL 0.4-1.2 30 Beta Globulin 1.0 g/dL 0.6-1.3 30 Gamma Globulin 0.9 g/dL 0.5-1.6 30 M-Jarret Not Observed g/dL Not Observed 30 Globulin, Total 3.0 g/dL 2.0-4.5 30 A/G Ratio 1.4 0.7-2.0 30 Please note: See Comment: 30, 31 Laboratory test finding 07/15/2015 C-Reactive Protein, Quant 0.9 mg/L 0.0 -4.9 30 PDF [id number] SEE IMAGE 30 Laboratory test 07/15/2015 Sed Rate ([facility]/CMC/Centrex) 7 mm finding Laboratory test 06/28/2015 Vitamin B12 551 pg/mL 180-914 32 finding CBC Auto Diff 06/23/2015 White Blood Count 9.9 10^3/uL 4.8-10.8 Red Blood Count 4.47 10^6/uL 4.0-5.4 Hemoglobin 14.6 g/dL 12.0-16.0 Hematocrit 44 % 35-47 Mean Corpuscular Volume 99 fL High 80-97 Mean Corpuscular Hemoglobin 33 pg High 27-31 Mean Corpuscular HGB Conc 33 g/dL 31-36 Red Cell Distribution Width 15 % 10.5-15 Platelet Count 228 10^3/uL 150-450 Mean Platelet Volume 8 um3 7.4-10.4 Abs Neutrophils 3.8 10^3/uL 1.5-7.7 Abs Lymphocytes 4.8 10^3/uL 1.0-4.8 Abs Monocytes 0.8 10^3/uL 0-0.8 Abs Eosinophils 0.2 10^3/uL 0-0.6 Abs Basophils 0.1 10^3/uL 0-0.2 Abs Nucleated RBC 0.01 10^3/uL Granulocyte % 39.0 % 38-83 Lymphocyte % 48.8 % High 25-47 Monocyte % 8.3 % 1-9 Eosinophil % 2.5 % 0-6 Basophil % 1.4 % 0-2 Nucleated Red Blood Cells % 0.1 Comp Metabolic Panel 06/23/2015 Sodium 135 mmol/L 133-145 Potassium 4.0 mmol/L 3.5-5.0 Chloride 99 mmol/L Low 101-111 Co2 Carbon Dioxide 30 mmol/L 22-32 Anion Gap 6 mmol/L 2-11 Glucose 103 mg/dL High 70-100 Blood Urea Nitrogen 16 mg/dL 6-24 Creatinine 0.65 mg/dL 0.51-0.95 BUN/Creatinine Ratio 24.6 High 8-20 Calcium 9.3 mg/dL 8.6-10.3 Total Protein 6.9 g/dL 6.4-8.9 Albumin 4.4 g/dL 3.2-5.2 Globulin 2.5 g/dL 2-4 Albumin/Globulin Ratio 1.8 1-3 Total Bilirubin 0.50 mg/dL 0.2-1.0 Alkaline Phosphatase 74 U/L 34-104 Alt 17 U/L 7-52 Ast 17 U/L 13-39 Egfr Non- 87.9 >60 Egfr 113.1 >60 33 Laboratory test finding 06/23/2015 CA 27-29 22.74 U/mL 3.5-38.6 34 CBC Auto Diff 08/29/2014 White Blood Count 9.1 10^3/uL 4.8-10.8 Red Blood Count 4.54 10^6/uL 4.0-5.4 Hemoglobin 14.8 g/dL 12.0-16.0 Hematocrit 44 % 35-47 Mean Corpuscular Volume 97 fL 80-97 Mean Corpuscular Hemoglobin 33 pg High 27-31 Mean Corpuscular HGB Conc 34 g/dL 31-36 Red Cell Distribution Width 14 % 10.5-15 Platelet Count 275 10^3/uL 150-450 Mean Platelet Volume 8 um3 7.4-10.4 Abs Neutrophils 4.4 10^3/uL 1.5-7.7 Abs Lymphocytes 3.5 10^3/uL 1.0-4.8 Abs Monocytes 0.9 10^3/uL High 0-0.8 Abs Eosinophils 0.3 10^3/uL 0-0.6 Abs Basophils 0 10^3/uL 0-0.2 Abs Nucleated RBC 0 10^3/uL Granulocyte % 48.6 % 38-83 Lymphocyte % 38.3 % 25-47 Monocyte % 10.2 % High 1-9 Eosinophil % 2.8 % 0-6 Basophil % 0.1 % 0-2 Nucleated Red Blood Cells % 0 Oncology CBC Auto Diff 06/15/2014 White Blood Count 8.6 10^3/uL 4.8-10.8 Red Blood Count 4.62 10^6/uL 4.0-5.4 Hemoglobin 15.0 g/dL 12.0-16.0 Hematocrit 44 % 35-47 Mean Corpuscular Volume 96 fL 80-97 Mean Corpuscular Hemoglobin 33 pg High 27-31 Mean Corpuscular HGB Conc 34 g/dL 31-36 Red Cell Distribution Width 14 % 10.5-15 Platelet Count 294 10^3/uL 150-450 Mean Platelet Volume 8 um3 7.4-10.4 Abs Neutrophils 2.8 10^3/uL 1.5-7.7 Abs Lymphocytes 4.3 10^3/uL 1.0-4.8 Abs Monocytes 0.7 10^3/uL 0-0.8 Abs Eosinophils 0.3 10^3/uL 0-0.6 Abs Basophils 0.5 10^3/uL High 0-0.2 Manual Differential 06/15/2014 Neutrophil % 37 % Low 38-83 Lymphocytes % 51 % High 25-47 Monocytes % 7 % 0-13 Eosinophils % 4 % 0-6 Reactive Lymph % 1 % 0-6 RBC Morphology Normal Normal Comp Metabolic Panel 06/15/2014 Sodium 136 mmol/L 133-145 Potassium 4.1 mmol/L 3.7-5.6 Chloride 98 mmol/L Low 101-111 Co2 Carbon Dioxide 29 mmol/L 22-32 Anion Gap 9 mmol/L 2-11 Glucose 98 mg/dL 70-100 Blood Urea Nitrogen 10 mg/dL 6-24 Creatinine 0.57 mg/dL 0.51-0.95 BUN/Creatinine Ratio 17.5 8-20 Calcium 9.4 mg/dL 8.6-10.3 Total Protein 6.9 g/dL 6.4-8.9 Albumin 4.5 g/dL 3.2-5.2 Globulin 2.4 g/dL 2-4 Albumin/Globulin Ratio 1.9 1-3 Total Bilirubin 0.70 mg/dL 0.2-1.0 Alkaline Phosphatase 75 U/L 34-104 Alt 17 U/L 7-52 Ast 19 U/L 13-39 Egfr Non- 102.6 >60 Egfr 131.9 >60 35 Lipid Profile 04/19/2014 Cholesterol 268 mg/dL High 120-200 Triglycerides 130 mg/dL 30-200 HDL Cholesterol 70 mg/dL 30-85 LDL (Calculated) 172 CALC High 0-129 VLDL Cholesterol 26 mg/dL 0-50 HDL Risk Factor 3.8 CALC 0.0-4.4 Urinalysis Profile 04/12/2014 Urine Color Yellow Urine Appearance Clear Urine Specific Wilson 1.010 1.010-1.030 Urine pH 6.5 5-9 Urine Urobilinogen Negative Negative Urine Ketones Trace Negative Urine Protein Negative Negative Urine Leukocytes 2+ Negative Urine Blood 1+ Negative * TNP Negative Urine Nitrite Negative Negative Urine Bilirubin Negative Negative Urine Glucose Negative Negative Urine White Blood Cell 1+(6-10/hpf) Absent Urine Red Blood Cell 1+(3-5/hpf) Absent Urine Bacteria 1+ Absent Urine Squamous Epithelial Cell Present Absent Urine Culture And 04/12/2014 Urine Culture (SEE NOTE) 36 Sensitivities CBC Auto Diff 04/12/2014 White Blood Count 9.3 10^3/uL 4.8-10.8 Red Blood Count 4.50 10^6/uL 4.0-5.4 Hemoglobin 14.8 g/dL 12.0-16.0 Hematocrit 43 % 35-47 Mean Corpuscular Volume 95 fL 80-97 Mean Corpuscular Hemoglobin 33 pg High 27-31 Mean Corpuscular HGB Conc 35 g/dL 31-36 Red Cell Distribution Width 14 % 10.5-15 Platelet Count 254 10^3/uL 150-450 Mean Platelet Volume 8 um3 7.4-10.4 Abs Neutrophils 6.2 10^3/uL 1.5-7.7 Abs Lymphocytes 2.5 10^3/uL 1.0-4.8 Abs Monocytes 0.6 10^3/uL 0-0.8 Abs Eosinophils 0.1 10^3/uL 0-0.6 Abs Basophils 0 10^3/uL 0-0.2 Abs Nucleated RBC 0 10^3/uL Granulocyte % 65.9 % 38-83 Lymphocyte % 26.7 % 25-47 Monocyte % 6.2 % 1-9 Eosinophil % 1.0 % 0-6 Basophil % 0.2 % 0-2 Nucleated Red Blood Cells % 0 Comp Metabolic Panel 04/12/2014 Sodium 134 mmol/L 133-145 Potassium 4.0 mmol/L 3.7-5.6 Chloride 97 mmol/L Low 101-111 Co2 Carbon Dioxide 31 mmol/L 22-32 Anion Gap 6 mmol/L 2-11 Glucose 116 mg/dL High 70-100 Blood Urea Nitrogen 15 mg/dL 6-24 Creatinine 0.56 mg/dL 0.51-0.95 BUN/Creatinine Ratio 26.8 High 8-20 Calcium 9.3 mg/dL 8.6-10.3 Total Protein 7.3 g/dL 6.4-8.9 Albumin 4.6 g/dL 3.2-5.2 Globulin 2.7 g/dL 2-4 Albumin/Globulin Ratio 1.7 1-3 Total Bilirubin 0.50 mg/dL 0.2-1.0 Alkaline Phosphatase 74 U/L 34-104 Alt 16 U/L 7-52 Ast 18 U/L 13-39 Egfr Non- 104.7 >60 Egfr 134.6 >60 37 Laboratory test finding 04/12/2014 Magnesium 2.0 mg/dL 1.9-2.7 Troponin I 0.00 ng/mL <0.03 38 TSH (Thyroid Stimulating Horm) 4.39 IU/mL 0.34-5.60 C Reactive Protein 3.36 mg/L < 5.00 39 CBC Auto Diff 12/15/2013 White Blood Count 7.3 10^3/uL 4.8-10.8 Red Blood Count 4.60 10^6/uL 4.0-5.4 Hemoglobin 15.1 g/dL 12.0-16.0 Hematocrit 44 % 35-47 Mean Corpuscular Volume 95 fL 80-97 Mean Corpuscular Hemoglobin 33 pg High 27-31 Mean Corpuscular HGB Conc 35 g/dL 31-36 Red Cell Distribution Width 13 % 10.5-15 Platelet Count 226 10^3/uL 150-450 Mean Platelet Volume 9 um3 7.4-10.4 Abs Neutrophils 3.3 10^3/uL 1.5-7.7 Abs Lymphocytes 3.3 10^3/uL 1.0-4.8 Abs Monocytes 0.5 10^3/uL 0-0.8 Abs Eosinophils 0.2 10^3/uL 0-0.6 Abs Basophils 0 10^3/uL 0-0.2 Granulocyte % 45.1 % 38-83 Lymphocyte % 45.2 % 25-47 Monocyte % 6.5 % 1-9 Eosinophil % 2.5 % 0-6 Basophil % 0.7 % 0-2 Comp Metabolic Panel 12/15/2013 Sodium 137 mmol/L 133-145 Potassium 3.9 mmol/L 3.7-5.6 Chloride 100 mmol/L Low 101-111 Co2 Carbon Dioxide 29 mmol/L 22-32 Anion Gap 8 mmol/L 2-11 Glucose 156 mg/dL High 70-100 Blood Urea Nitrogen 14 mg/dL 6-24 Creatinine 0.58 mg/dL 0.51-0.95 BUN/Creatinine Ratio 24.1 High 8-20 Calcium 9.7 mg/dL 8.6-10.3 Total Protein 6.9 g/dL 6.4-8.9 Albumin 4.6 g/dL 3.2-5.2 Globulin 2.3 g/dL 2-4 Albumin/Globulin Ratio 2.0 1-3 Total Bilirubin 0.60 mg/dL 0.2-1.0 Alkaline Phosphatase 71 U/L 34-104 Alt 19 U/L 7-52 Ast 18 U/L 13-39 Egfr Non- 100.8 >60 Egfr 129.6 >60 40 Laboratory test finding 12/15/2013 CA 27-29 21.04 U/mL 3.5-38.6 41 Basic Metabolic Profile 07/13/2013 BUN 14 mg/dL 6-26 Calcium 10.4 mg/dL High 8.6-10.2 42 Chloride 94 mEq/L 94-112 Creatinine 0.7 mg/dL 0.6-1.4 Carbon Dioxide 28 mEq/L 21-32 Glucose 111 mg/dL High 70-105 43 Sodium 134 mEq/L 134-149 Potassium 4.3 mEq/L 3.6-5.5 BUN/Creat Ratio 20.0 Calc 8.0-36.0 Laboratory test finding 07/13/2013 TSH 3.70 mIU/L 0.50-6.00 Laboratory test finding 07/13/2013 Brain Natural Peptide 7.7 pg/mL < 100 CBC Electronic ([facility]) 07/13/2013 WBC 9.9 High 3.6-9.6 RBC 4.68 3.90-5.70 Hemoglobin ([facility]ma/CMC/CTX) 15.2 g/dL 12.1 - 17.2 Hematocrit ([facility]ma/CMC/CTX) 45.8 % 36.1 - 50.3 Platelets 345 10^3/ul 150-400 Lymph% 30.6 20.5-51.1 Mixed% 8.9 Neutrophils % 60.5 Mean Corpuscular Vol 98 High 82.2-97.4 Mean Corpuscular Hemoglobin 32.4 27.6-33.3 Mean Corpuscular Hemo Concen 33.2 32.0-36.0 RDW 12.2 11.6-13.7 Mean Platelet Volume 6.4 Low 6.5-11.0 CBC Auto Diff 12/14/2012 White Blood Count 5.4 10^3/uL 4.8-10.8 Red Blood Count 4.52 10^6/uL 4.0-5.4 Hemoglobin 14.9 g/dL 12.0-16.0 Hematocrit 45 % 35-47 Mean Corpuscular Volume 99 fL High 80-97 Mean Corpuscular Hemoglobin 33 pg High 27-31 Mean Corpuscular HGB Conc 33 g/dL 31-36 Red Cell Distribution Width 14 % 10.5-15 Platelet Count 231 10^3/uL 150-450 Mean Platelet Volume 9 um3 7.4-10.4 Abs Neutrophils 2.5 10^3/uL 1.5-7.7 Abs Lymphocytes 2.1 10^3/uL 1.0-4.8 Abs Monocytes 0.7 10^3/uL 0-0.8 Abs Eosinophils 0.1 10^3/uL 0-0.6 Abs Basophils 0 10^3/uL 0-0.2 Granulocyte % 45.5 % 38-83 Lymphocyte % 38.5 % 25-47 Monocyte % 13.8 % High 1-9 Eosinophil % 1.9 % 0-6 Basophil % 0.3 % 0-2 Comp Metabolic Panel 12/14/2012 Sodium 141 mmol/L 133-145 Potassium 4.5 mmol/L 3.5-5.0 Chloride 101 mmol/L 101-111 Co2 Carbon Dioxide 31.0 mmol/L 22-32 Anion Gap 9.0 mmol/L 2-11 Glucose 110 mg/dL High 70-100 Blood Urea Nitrogen 13 mg/dL 6-24 Creatinine 0.60 mg/dL 0.50-1.40 BUN/Creatinine Ratio 21.7 High 8-20 Calcium 9.5 mg/dL 8.1-9.9 Total Protein 6.9 g/dL 6.2-8.1 Albumin 4.0 g/dL 3.2-5.2 Globulin 2.9 g/dL 2-4 Albumin/Globulin Ratio 1.4 1-3 Total Bilirubin 0.6 mg/dL 0.4-1.5 Alkaline Phosphatase 78 U/L 30-110 Alt 32 U/L 14-54 Ast 30 U/L 12-42 Egfr Non- 97.2 >60 Egfr 125.0 >60 44 Laboratory test finding 12/14/2012 CA 27-29 25.70 U/mL 3.5-38.6 45 Comprehensive Metabolic Prof 11/18/2012 Albumin 4.8 g/dL 3.8-5.5 Alk. Phos. 92 U/L 30-110 Alt (SGPT) 38 U/L High 7-35 46 Ast (Sgot) 30 U/L 5-34 BUN 13 mg/dL 6-26 Calcium 10.1 mg/dL 8.6-10.2 Chloride 94 mEq/L 94-112 Creatinine 0.8 mg/dL 0.6-1.4 Carbon Dioxide 29 mEq/L 21-32 Glucose 115 mg/dL High 70-105 47 Sodium 136 mEq/L 134-149 Total Bilirubin 0.8 mg/dL 0.2-1.3 Total Protein 7.9 g/dL 6.3-8.1 Potassium 4.1 mEq/L 3.6-5.5 Globulin 3.0 g/dL 2.0-4.8 A/G Ratio 1.6 Calc 0.6-2.3 BUN/Creat Ratio 16.3 Calc 8.0-36.0 Lipid Profile 11/18/2012 Cholesterol 285 mg/dL High 120-200 HDL 71 mg/dL 30-85 Triglycerides 126 mg/dL 30-200 HDL Risk Factor 4.0 CALC 0.0-4.4 LDL (Calculated) 188 CALC High 0-129 VLDL (Calculated) 25 mg/dL 0-50 Comprehensive Metabolic Prof 05/15/2012 Albumin 4.8 g/dL 3.8-5.5 Alk. Phos. 90 U/L 30-110 Alt (SGPT) 27 U/L 7-35 Ast (Sgot) 26 U/L 5-34 BUN 13 mg/dL 6-26 Calcium 9.5 mg/dL 8.6-10.2 Chloride 94 mEq/L 94-112 Creatinine 0.7 mg/dL 0.6-1.4 Carbon Dioxide 26 mEq/L 21-32 Glucose 111 mg/dL High 70-105 Sodium 134 mEq/L 134-149 Total Bilirubin 0.8 mg/dL 0.2-1.3 Total Protein 7.4 g/dL 6.3-8.1 Potassium 4.0 mEq/L 3.6-5.5 Globulin 2.5 g/dL 2.0-4.8 A/G Ratio 1.9 Calc 0.6-2.2 BUN/Creat Ratio 19.7 Calc 8.0-36.0 Lipid Profile 05/15/2012 Cholesterol 287 mg/dL High 120-200 HDL 71 mg/dL 30-85 Triglycerides 139 mg/dL 30-200 HDL Risk Factor 4.0 CALC 0.0-4.4 LDL (Calculated) 188 CALC High 0-129 VLDL (Calculated) 28 mg/dL 0-50 CBC Electronic ([facility]) 05/15/2012 WBC 6.4 3.6-9.6 RBC 4.64 3.90-5.70 Hemoglobin ([facility]ma/CMC/CTX) 15.0 g/dL 12.1 - 17.2 Hematocrit (Fma/CMC/CTX) 45.6 % 36.1 - 50.3 Platelets 280 10^3/ul 150-400 Lymph% 32.9 20.5-51.1 Mixed% 6.8 Neutrophils % 60.3 Mean Corpuscular Vol 98 High 82.2-97.4 Mean Corpuscular Hemoglobin 32.4 27.6-33.3 Mean Corpuscular Hemo Concen 32.9 32.0-36.0 RDW 12.1 11.6-13.7 Mean Platelet Volume 7.6 6.5-11.0 Comprehensive Metabolic Prof 11/22/2011 Albumin 4.5 g/dL 3.8-5.5 Alk. Phos. 95 U/L 30-110 Alt (SGPT) 26 U/L 7-35 Ast (Sgot) 25 U/L 5-34 BUN 14 mg/dL 6-26 Calcium 9.2 mg/dL 8.6-10.2 Chloride 99 mEq/L 94-112 Creatinine 0.8 mg/dL 0.6-1.4 Carbon Dioxide 24 mEq/L 21-32 Glucose 112 mg/dL High 70-105 48 Sodium 139 mEq/L 134-149 Total Bilirubin 0.6 mg/dL 0.2-1.3 Total Protein 7.1 g/dL 6.3-8.1 Potassium 4.5 mEq/L 3.6-5.5 Globulin 2.6 g/dL 2.0-4.8 A/G Ratio 1.7 Calc 0.6-2.2 BUN/Creat Ratio 18.1 Calc 8.0-36.0 Lipid Profile 11/22/2011 Cholesterol 286 mg/dL High 120-200 HDL 70 mg/dL 30-85 Triglycerides 136 mg/dL 30-200 HDL Risk Factor 4.1 CALC High 0.0-4.0 LDL (Calculated) 188 CALC High 0-129 VLDL (Calculated) 27 mg/dL 0-50 Lipid Profile 08/10/2011 Cholesterol 274 mg/dL High 120-200 HDL 70 mg/dL 30-85 Triglycerides 126 mg/dL 30-200 HDL Risk Factor 3.9 CALC 0.0-4.0 LDL (Calculated) 179 CALC High 0-129 VLDL (Calculated) 25 mg/dL 0-50 Ua - Micro ([facility]) 04/26/2011 Appearance clear Color yellow Glucose - Bilirubin - Ketones - SP Grav 1.010 Blood - PH 7.0 Protein - Urobil 0.2 Nitrite - Leukocytes (a/CMC/[facility]) moderate Hyaline - /Lpf Granular - /Lpf WBC ([facility]) 10-15 RBC 0-1 Mucus - /Lpf Epith moderate /Lpf Bacteria trace /Hpf Amorphous - /Lpf Crystals, Fluid (Fma/CMC/CTX) - Z#Comments - CBC Electronic ([facility]) 04/26/2011 WBC 6.9 3.6-9.6 RBC 4.62 3.90-5.70 Hemoglobin ([facility]ma/CMC/CTX) 15.1 g/dL 12.1 - 17.2 Hematocrit ([facility]ma/CMC/CTX) 44.9 % 36.1 - 50.3 Platelets 280 10^3/ul 150-400 Lymph% 30.0 20.5-51.1 Mixed% 9.7 Neutrophils % 60.3 Mean Corpuscular Vol 97 82.2-97.4 Mean Corpuscular Hemoglobin 32.7 27.6-33.3 Mean Corpuscular Hemo Concen 33.7 32.0-36.0 RDW 12.5 11.6-13.7 Mean Platelet Volume 8.6 6.5-11.0 Lipid Profile 04/26/2011 Cholesterol 306 mg/dL High 120-200 49 HDL 80 mg/dL 30-85 Triglycerides 130 mg/dL 30-200 HDL Risk Factor 3.8 CALC 0.0-4.0 LDL (Calculated) 200 CALC High 0-129 VLDL (Calculated) 26 mg/dL 0-50 Laboratory test finding 04/26/2011 B12 438 pg/mL 230-1050 TSH 3.83 mIU/L 0.50-6.00 Free T4 0.76 ng/dL 0.75-1.54 Protein Elect Serum 04/26/2011 Protein Elect Serum SEE BELOW 50 Graph Report TO FOLLOW 50 Albumin 4.3 g/dL 3.2-5.6 50 Alpha 1 Globulin, Serum 0.3 g/dL 0.1-0.4 50 Alpha 2 Globulin, Serum 0.8 g/dL 0.4-1.2 50 Beta Globulin, Serum 1.3 g/dL 0.6-1.3 50 Gamma Globulin 1.0 g/dL 0.5-1.6 50 M-Jarret Gamma NOT OBSERVED g/dL Not Observed 50 M-Jarret Beta NOT OBSERVED g/dL Not Observed 50 Globulin,Total 3.4 g/dL 2.0-4.5 50 A/G Ratio 1.3 0.7-2.0 50 Protein, Total 7.6 g/dL 6.4-8.3 50 Interpretation, Serum SEE COMMENT 50, 51 CBC With Manual Diff 12/26/2010 White Blood Count 5.4 CUMM 4.8-10.8 Red Cell Count 4.33 CUMM 4.2-5.4 Hemoglobin 13.9 g/dL 12.0-16.0 Hematocrit 42 % 35-47 Mean Corpuscular Volume 97 um3 79-97 Mean Corpuscular Hemoglob 32 pg High 27-31 Mean Corpuscular HGB Cone 33 g/dL 32-36 Redcell Distribution WDTH 13 % 10.5-15 Platelet Count 287 CUMM 150-450 Mean Platelet Volume 7.6 um3 7.4-10.4 Polysegmented Neutrophil 59 % 38-83 Lymphocyte 32 % 25-47 Monocyte 7 % 0-13 Eosinophil 2 % 0-6 Absolute Neutrophil Count 3.1 RBC Morphology NORMAL Comp Metabolic Panel 12/26/2010 Sodium 138 mmol/L 135-145 Potassium 4.0 mmol/L 3.5-5.0 Chloride 99 mmol/L Low 101-111 Co2 (Carbon Dioxide) 29.0 mmol/L 22-32 Anion Gap 10.0 mmol/L 2-11 52 Glucose 125 mg/dL High 70-100 BUN 12 mg/dL 6-24 Creatinine 0.60 mg/dL 0.50-1.40 One Over Creatinine 1.60 BUN/Creatinine Ratio 20.0 8-20 Calcium 9.8 mg/dL 8.1-9.9 Total Protein 6.4 GM/DL 6.2-8.1 Albumin 4.3 GM/DL 3.2-5.2 Globulin 2.1 GM/DL 2-4 Albumin/Globulin Ratio 2.0 1-3 Bilirubin Total 0.9 mg/dL 0.4-1.5 53 Alkaline Phosphatase 85 U/L 30-110 Alt (SGPT) 27 U/L 14-54 Ast (Sgot) 31 U/L 12-42 eGFR Non- 97.7 > 60 eGFR 125.7 > 60 54 Laboratory test finding 12/26/2010 CA 27-29 33.46 U/ml 3.5-38.6 55 Lipid Profile 06/12/2010 Cholesterol 272 mg/dL High 120-200 HDL 74 mg/dL 30-85 Triglycerides 140 mg/dL 30-200 HDL Risk Factor 3.7 CALC Low 4.2-7.0 LDL (Calculated) 169 CALC High 0-129 VLDL (Calculated) 28 mg/dL 0-50 Ua - Non Micro ([facility]ma) 03/16/2010 Appearance CLEAR Color YELLOW Glucose NEG Bilirubin NEG Ketones NEG SP Grav 1.015 Blood NEG PH 7.0 Protein NEG Urobil 0.2 E.U./dL Nitrite NEG Leukocytes (Fma/CMC/[facility]rex) NEG Comprehensive Metabolic Prof 03/16/2010 Albumin 4.9 g/dL 3.8-5.5 Alk. Phos. 91 U/L 30-110 Alt (SGPT) 30 U/L 7-35 Ast (Sgot) 32 U/L 5-34 BUN 16 mg/dL 6-26 Calcium 9.9 mg/dL 8.6-10.2 Chloride 96 mEq/L 94-112 Creatinine 0.7 mg/dL 0.6-1.4 Carbon Dioxide 26 mEq/L 21-32 Glucose 102 mg/dL 70-105 Sodium 138 mEq/L 134-149 Total Bilirubin 0.7 mg/dL 0.2-1.3 Total Protein 7.9 g/dL 6.3-8.1 Potassium 4.5 mEq/L 3.6-5.5 Globulin 3.0 g/dL 2.0-4.8 A/G Ratio 1.7 Calc 0.6-2.2 BUN/Creat Ratio 22.0 Calc 8.0-36.0 Lipid Profile 03/16/2010 Cholesterol 300 mg/dL High 120-200 HDL 77 mg/dL 30-85 Triglycerides 153 mg/dL 30-200 HDL Risk Factor 3.9 CALC Low 4.2-7.0 LDL (Calculated) 192 CALC High 0-129 VLDL (Calculated) 31 mg/dL 0-50 Laboratory test finding 03/16/2010 TSH 3.53 mIU/L 0.50-6.00 CBC (a) 03/16/2010 WBC 6.9 3.6-9.6 RBC 4.62 3.90-5.70 Hemoglobin (Fma/CMC/CTX) 15.1 g/dL 12.1 - 17.2 Hematocrit (Fma/CMC/CTX) 43.7 % 36.1 - 50.3 Mean Corpuscular Vol 94.6 82.2-97.4 Mean Corpuscular Hemaglobin 32.7 27.6-33.3 Mean Corpuscular Hemo Concen 34.6 33.0-36.0 Platelets 246 10^3/ul 150-400 Lymph% 33.2 20.5-51.1 Mixed% 10.0 Neutrophils % 56.8 RDW 13.8 High 11.6-13.7 Mean Platelet Volume 10.9 High 7.4-10.4 Basic Metabolic Profile 03/15/2009 BUN 14 mg/dL 6-26 Calcium 9.4 mg/dL 8.6-10.2 Chloride 97 mEq/L 94-112 Creatinine 0.7 mg/dL 0.6-1.4 Carbon Dioxide 30 mEq/L 21-32 Glucose 87 mg/dL 70-105 Sodium 138 mEq/L 134-149 Potassium 3.9 mEq/L 3.6-5.5 BUN/Creat Ratio 19.9 Calc 8.0-36.0 Laboratory test finding 02/22/2009 Erythrocyte Sed Rate 14 MM/HR 0-40 CBC With Manual Diff 02/22/2009 White Blood Count 5.1 CUMM 4.8-10.8 Red Cell Count 4.17 CUMM Low 4.2-5.4 Hemoglobin 13.6 g/dL 12.0-16.0 Hematocrit 39 % 35-47 Mean Corpuscular Volume 94 um3 79-97 Mean Corpuscular Hemoglob 33 pg High 27-31 Mean Corpuscular HGB Cone 35 g/dL 32-36 Redcell Distribution WDTH 13 % 10.5-15 Platelet Count 246 CUMM 150-450 Mean Platelet Volume 8.8 um3 7.4-10.4 Polysegmented Neutrophil 67 % 38-83 Lymphocyte 20 % Low 25-47 Monocyte 9 % 0-13 Eosenophil 3 % 0-6 Basophil 1 % 0-2 Absolute Neutrophil Count 3.4 RBC Morphology NORMAL Laboratory test 02/22/2009 C Reactive Protein < 0.5 mg/dL Less Than 0.5 finding Laboratory test 01/20/2006 [facility] [place]HEUM;CRP;ESR;A See Image Report finding NA Comp Metabolic ([facility] 01/17/2005 Sodium 136 mmol/L 135-145 Potassium 4.2 mmol/L 3.5-5.0 Chloride 105 mmol/L 101-111 Co2 27.0 mmol/L 22-32 Anion Gap 4.0 mmol/L 2-11 56 Glucose, Serum ([facility]ma/CMC/CTX) 106 mg/dL High 70-105 BUN (a/CMC/Centrex) 15 mg/dL 6-24 Creatinine (Fma/CMC/CTX) 0.7 mg/dL 0.5-1.4 BUN/Creatinin Ratio 21.4 High 8-20 Calcium ([facility]/CMC/[facility]) 9.9 mg/dL 8.7-10.2 Total Protein 7.2 GM/DL 6.2-8.1 Albumin ([facility] 4.2 3.6-5.4 Globulin 3.0 2-4 A/G Ratio ([facility]) 1.4 1-3 Bilirubin, Total 0.9 mg/dL 0.4-1.5 Alkaline Phosphatase (F/C/CTX) 73 U/L 30-110 Alt (SGPT) (a/[facility]) 19 17-63 Ast (Sgot) (a/[facility]) 19 12-42 Laboratory test finding 01/17/2005 LDH 161 95-185 CBC W/ Manual Diff ([facility] 01/17/2005 WBC 6.8 CUMM 4.8-10.8 RBC 4.26 CUMM 4.2-5.4 Hemoglobin ([facility]CTX) 13.2 g/dL 12.0-16.0 Hematocrit (a/[facility]/CTX) 40 % 35-47 Mean Corpuscular Vol 93 UM3 79-97 Mean Corpuscular Hemaglobin 31 pg 27-31 Mean Corpuscular Hemo Concen 33 g/dL 32-36 RDW 14 10.5-15 Platelets 324 CUMM 150-450 Mean Platelet Volume 8.5 7.4-10.4 Poly From [facility] 65 38-83 Band 2 0-8 Lymph From [facility] 23 5-47 Monocytes 6 % 1-9 Eosinophils 3 0-6 Atypical Lymph 1 0-6 Morphology NORMAL Basophils - Laboratory test finding 01/17/2005 Ca27.29 [place] 25.66 2.0-38.6 Laboratory test finding 02/10/2003 C-Reactive Protein 0.4 mg/dL 0 - 0.5 Comp+ Lipid ([facility]) 12/26/2001 Sodium 144 mmol/L 135-146 Potassium 4.7 mmol/L 3.5-5.3 Chloride 107 mmol/L 98-110 Uric Acid 4.2 mg/dL 1.7-7.5 Phosphorus 3.7 mg/dL 2.5-4.5 Calcium 9.4 mmol/L 8.5-10.4 Ionized Calcium 4.2 mg/dL 3.8-4.5 Magnesium 2.0 mg/dL 1.5-2.5 Alkaline Phosphatase 80 U/L 20-125 GGT 34 U/L 2-60 Ast (Sgot) 18 U/L 2-35 Alt (SGPT) 18 U/L 2-40 LD 147 U/L 100-250 Bilirubin, Total 0.5 mg/dL 0.2-1.3 Bilirubin, Direct 0.1 mg/dL 0.0-0.3 Glucose 88 mg/dL 65-109 BUN 19 mg/dL 7-25 Creatinine 0.8 mg/dL 0.5-1.2 BUN/Creatinin Ratio 24.9 mg/dL 6-25 Total Protein 6.9 GM/DL 6.0-8.3 Albumin 4.4 GM/DL 3.5-4.9 Globulin 2.5 g/dL 2.2-4.2 A/G Ratio 1.7 0.8-2.0 Cholesterol 226 mg/dL High <200 Cholesterol / HDL Ratio 3.01 <4.46 LDL-Calculated 128 High <100 Triglyceride 116 mg/dL <150 Iron, Total 76 g/dL 35-175 HDL-Chol 75 >40 Tibc 318 250-400 Iron Saturation Percent 24 % 13-48 CBC Simple ([facility]) 12/26/2001 WBC 6.6 x1000 3.9-11.2 RBC 4.09 xMILLION 3.8-5.2 Hemoglobin 13.0 g/dL 11.6-15.5 Hematocrit 38.2 % 34-46 Mean Corpuscular Vol 93.3 FL 80-98 Mean Corpuscular Hemaglobin 31.7 pg 27-34 Mean Corpuscular Hemo Concen 34.0 % 32-36 RDW 13.3 % 11.0-15.5 CBC With Diff ([facility]) 01/28/2000 WBC 7.4 /Hpf 3.6 - 9.6 Lymphocytes 22.9 % 20.5 - 51.1 Monocytes 6.4 % 1.7 - 9.3 Granulocytes 70.7 % 42.2 - 75.2 Lymphocytes 1.7 10^3/uL 0.7 - 4.9 Monocytes 0.5 10^3/uL 0.1 - 0.9 Granulocytes 5.2 10^3/uL 1.5 - 7.2 RBC 4.08 /Hpf 3.90 - 5.70 Hemoglobin 13.3 g/dL 12.1 - 17.2 Hematocrit 38.9 % 36.1 - 50.3 Mean Corpuscular Vol 95.4 fl 82.2 - 97.4 Mean Corpuscular Hemaglobin 32.5 pg 27.6 - 33.3 Mean Corpuscular Hemo Concen 34.1 g/dL 33.0 - 34.8 RDW 13.0 % 11.6 - 13.7 Platelets 217 10^3/ul 150-400 Mean Platelet Volume 8.2 fl 7.4 - 10.4 Comp Metabolic ([facility]) 01/28/2000 Albumin 4.8 GM/DL 3.80 - 5.50 Alkaline Phosphatase 80 U/L 39-130 Bilirubin, Total 0.8 mg/dL 0.2-1.3 BUN 14 mg/dL 10-26 Calcium 8.8 mg/dL 7.4-9.2 Creatinine 0.7 mg/dL 0.6-1.4 Glucose 89 mg/dL 70 - 118 Ast Sgot 20 U/L 9-44 Alt (SGPT) 18 U/L 10-40 Total Protein 7.5 g/dL 6.3-8.1 Sodium 141 mEq/L 134-149 Potassium 4.4 mEq/L 3.6-5.5 Chloride 101 mEq/L 94-112 Co2 28 21-32 Globulin 2.7 2.0-4.8 Albumin / Globulin Ratio 1.8 0.6-2.2 BUN/Creatinin Ratio 20.0 8.0-36 Laboratory test finding 01/28/2000 TSH 4.58 uIU/ML High 0.3-4.5 1 Because ethnic data is not always readily available, this report includes an eGFR for both -Americans and non- Americans. The National Kidney Disease Education Program (NKDEP) does not endorse the use of the MDRD equation for patients that are not between the ages of 18 and 70, are , have extremes of body size, muscle mass, or nutritional status, or are non- or non-. According to the National Kid[employer] Foundation, irrespective of diagnosis, the stage of the disease is based on the level of kidney function: Stage Description GFR(mL/min/1.73 m(2)) 1 Kidney damage with normal or decreased GFR 90 2 Kidney damage with mild decrease in GFR 60-89 3 Moderate decrease in GFR 30-59 4 Severe decrease in GFR 15-29 5 Kidney failure <15 (or dialysis) 2 SEE RESULT BELOW Name: GUSTAVO DEVLIN : [address]: Dhara Staff,Doctor Acct: [id number] Unit: [id number] AGE: 81 Location: [facility] [place] Re11/12/16 SEX: F Status: REG REF SPEC: [id number] HEAVEN: 11/12/16-[address] 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 COMMENT: The findings are identical to the previous cytology and concurrent surgical specimens. Please see those reports for further characterization. A. AXILLARY RIGHT - US GUIDED RIGHT AXILLARY MASS FINE NEEDLE ASPIRATION CLINICAL HISTORY Axillary mass. Breast cancer 10/2016 IMMEDIATE INTERPRETATION pass 1, and 2-adequate CONTINUED ON NEXT PAGE * ML=Testing performed at Main Lab DEPARTMENT OF PATHOLOGY, [address] [place] [address] Elvin Zarate M.D. Director [facility] # [id number] RUN DATE: 11/13/16 LAB LIVE PAGE 2 Patient: GUSTAVO DEVLIN [id number] (Continued) GROSS DESCRIPTION (Continued) GROSS DESCRIPTION Ultrasound guided, fine needle aspiration x 2 passes with 4 Alcohol fixed slide(s) and needle rinse in formalin for cell block. Signed (signature on file) Jonelle Garcia MD 04/24 1017 END OF REPORT * ML=Testing performed at Main Lab DEPARTMENT OF PATHOLOGY, [address] [place] [address] Elvin Zarate M.D. Director [facility] # [id number] 3 Because ethnic data is not always readily available, this report includes an eGFR for both -Americans and non- Americans. The National Kidney Disease Education Program (NKDEP) does not endorse the use of the MDRD equation for patients that are not between the ages of 18 and 70, are , have extremes of body size, muscle mass, or nutritional status, or are non- or non-. According to the National Kidney Foundation, irrespective of diagnosis, the stage of the disease is based on the level of kidney function: Stage Description GFR(mL/min/1.73 m(2)) 1 Kidney damage with normal or decreased GFR 90 2 Kidney damage with mild decrease in GFR 60-89 3 Moderate decrease in GFR 30-59 4 Severe decrease in GFR 15-29 5 Kidney failure <15 (or dialysis) 4 SEE RESULT BELOW Name: QUITAGUSTAVO : [address]: Elle Pearson MD Acct: [id number] Unit: [id number] AGE: 81 Location: LAB Re10/21/16 SEX: F Status: REG REF SPEC: [id number] HEAVEN: 10/21/16-[address] [facility] DR: Elvin Zarate MD REQ: [id number] RECD: 10/21/16-1250 STATUS: PAIGE ENRIQUEZ DR: Elle Pearson MD _ ORDERED: FN ASP SUPERFIC, FN ASP PALP, CD34 STAIN, FNA IMMEDIATE S, PATH CONSULT, [id number], VIMENTIN ST-ADD, ACT-ADD, MELAN-A-ADD, BCL-2-ADD, IMMUNO-TECH- FUSF has been performed at [facility], [place], [place]. The testing reveals: Test Result Flag Unit RefValue FUS (16p11.2), FISH, Ts Result Summary Negative Interpretation See Comment No rearrangement of the FUS gene region was identified. Clinical and pathologic correlation is recommended. Result See Comment nuc jameel(FUSx3-5)[49/100] Abnormality Cutoff(%) 16p11(FUS sep) <9.0 +16p11(FUSx3-5) <21.0 Reason for Referral See Comment RESULT: low-grade fibromyxoid sarcoma (LGFMS) Specimen Tissue, Slides Source Right axillary Tissue ID [id number] Method See Comment Locus and probes [Strategy;#Nuclei;Class] 16p11(5'FUS,3'FUS) [BAP;100;ASR] Probe strategy: BAP=break-apart probe. Disclaimer See Comment This FISH assay does not rule out other chromosome abnormalities. Test Performed by: [facility] - [address] [address] Starter Mechanic: Ranjan Wood II, M.D., Ph.D. (Original report scanned into Pathology Reports). CONTINUED ON NEXT PAGE * ML=Testing performed at [facility] DEPARTMENT OF PATHOLOGY, [address] [place] [address] Elvin Zarate M.D. Director [facility] # [id number] RUN DATE: 11/01/16 LAB LIVE PAGE 2 Patient: GUSTAVO DEVLIN [id number] (Continued) ADDENDUM (Continued) Addendum Signed (signature on file) Jonelle Garcia MD 1513 Addendum: The [facility] and interpreted by [facility]. 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 Final classification is deferred to excisional specimen. Addendum Signed (signature on file) Elvin Zarate MD 1008 FINAL DIAGNOSIS Right axillary, fine needle aspiration by palpation: Malignant- myxoid sarcoma, favor myxofibrosarcoma Comment: The aspirate smears are abundantly cellular and demonstrating cohesive and discohesive myxoid spindled elements demonstrating high cellularity and significant nuclear pleomorphism. Nuclei are round to oval with marketed nuclear contour irregularities and coarsely stippled chromatin. Only rare mitotic figures are seen. No necrosis is seen. The formalin fixed cell block demonstrate identical features. The following immunochemical stains are performed on formalin fixed cell block material with appropriate controls. CONTINUED ON NEXT PAGE * ML=Testing performed at Main Lab DEPARTMENT OF PATHOLOGY, [address] [place] [address] Elvin Zarate M.D. 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 While not entirely specific the immunophenotype including vimentin and CD34 positivity are most strongly supportive of a diagnosis of myxofibrosarcoma. Myxoid liposarcoma is largely ruled out based on negative S100 staining and low-grade fibromyxoid sarcoma the cell to be less likely based on positive CD34 staining. Additional stains are pending to further refine this diagnosis and will be reported in an addendum. Concurrent pertinent imaging studies were reviewed. The procedure was explained to and understood by the patient. Signed consent was obtained and a time out procedure was performed at the bedside to verify patient identity and biopsy site. Fine needle aspiration biopsy was performed times 2 with a 25 gauge needle on approximately 8 cm right axillary mass. Adequacy was assessed by fast stain technique. The procedure was tolerated well without complications. This case was discussed with Dr. Pearson on 10/23/2016. Dr. Garcia has reviewed this case and concurs. A cell block was prepared in the evaluation of this specimen. Smears and cell block reveal similar findings. A. AXILLARY RIGHT - RIGHT AXILLAY MASS FINE NEEDLE ASPIRATION BY PALPATION CONTINUED ON NEXT PAGE * ML=Testing performed at Main Lab DEPARTMENT OF PATHOLOGY, [address] [place] [address] Elvin Zarate M.D. Director [facility] # [id number] RUN DATE: 11/01/16 LAB LIVE PAGE 4 Patient: GUSTAVO DEVLNI [id number] (Continued) CLINICAL HISTORY (Continued) CLINICAL HISTORY History of malignant neoplasm of breast. IMMEDIATE INTERPRETATION All passes adequate GROSS DESCRIPTION Fine needle aspiration by palpation x 2 passes with 1 Alcohol fixed slide(s) and needle rinse in formalin for cell block. Signed (signature on file) Elvin Zarate MD 1113 END OF REPORT * ML=Testing performed at Main Lab DEPARTMENT OF PATHOLOGY, [address] [place] [address] Elvin Zarate M.D. Director [facility] # [id number] 5 Test Result Flag Unit RefValue FUS (16p11.2), FISH, Ts Result Summary Negative Interpretation See Comment No rearrangement of the FUS gene region was identified. Clinical and pathologic correlation is recommended. 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 Disclaimer See Comment Analyte Specific Reagent (ASR). This test was developed and its performance characteristics determined by [facility] in a manner consistent with CLIA requirements. It has not been cleared or approved by the U.S. Food and Drug Administration. This test is intended to be used as an adjunct to existing clinical and pathologic information currently used for the differential diagnosis of low grade fibromyxoid sarcoma. This FISH assay does not rule out other chromosome abnormalities. Released By See Comment RESULT: Elvin Parks, Ph.D. Test Performed by: [place] [address] Starter Mechanic: Ranjan Wood II, M.D., Ph.D. 6 Therapeutic target for the treatment of diabetes Mellitus patients is <7% HBA1C, and in selective patients <6.0%.Please refer to [place] [employer] Association Diabetic care guidelines for further information. 7 with immunofixation Copy Result to: ELLE PEARSON ([id number]) 8 Assay by Chemiluminescence microparticle immunoassay on the [employer]. Values obtained with different methods or kits cannot be used interchangeably for patient monitoring. Results cannot be interpreted as absolute evidence of the presence or absence of malignancy. The test is not interpretable in . 9 Warning: A positive result is not useful for establishing a diagnosis of syphilis. In most situations, such a result may reflect a prior treated infection; a negative result can exclude a diagnosis of syphilis except for incubating or early primary disease. 10 REFERENCE VALUE <1.0 (Negative) Test Performed by: [address] [address] Starter Mechanic: Ranjan Wood II, M.D., Ph.D. 11 REFERENCE VALUE <1.0 (Negative) Test Performed by: [place] [address] Starter Mechanic: Ranjan Wood II, M.D., Ph.D. 12 Serologic response to B. burgdorferi infection is not detected, but cannot rule out early infection during which low or undetectable antibody levels to B. burgdorferi may be present. If clinically indicated, a new serum specimen should be submitted in 7-14 days. Test Performed by: [place] [address] Starter Mechanic: Ranjan Wood II, M.D., Ph.D. 13 RESULT: No apparent monoclonal protein on serum electrophoresis. Test Performed by: [place] [address] Starter Mechanic: Ranjan Wood II, M.D., Ph.D. 14 REFERENCE VALUE <=1.0 (Negative) 15 REFERENCE VALUE <20.0 (Negative) 16 Tests for antibodies to dsDNA and EVE antigens are not performed automatically unless the DENIS result is > or= 3.0 U. Studies performed at [facility] indicate that positive DENIS results <3.0 U are rarely accompanied by positive second order tests. Test Performed by: [place] [address] Starter Mechanic: Ranjan Wood II, M.D., Ph.D. 17 Test Performed by: [place] [address] Starter Mechanic: Ranjan Wood II, M.D., Ph.D. 18 This test is negative at 24 hours. All samples are held and reviewed again at 7 days. If delayed precipitation occurs after 7 days, Immunofixation will be performed and an additional report will follow. Test Performed by: [address] [address] Starter Mechanic: Ranjan Wood II, M.D., Ph.D. 19 Because ethnic data is not always readily available, this report includes an eGFR for both -Americans and non- Americans. The National Kidney Disease Education Program (NKDEP) does not endorse the use of the MDRD equation for patients that are not between the ages of 18 and 70, are , have extremes of body size, muscle mass, or nutritional status, or are non- or non-. According to the National Kidney Foundation, irrespective of diagnosis, the stage of the disease is based on the level of kidney function: Stage Description GFR(mL/min/1.73 m(2)) 1 Kidney damage with normal or decreased GFR 90 2 Kidney damage with mild decrease in GFR 60-89 3 Moderate decrease in GFR 30-59 4 Severe decrease in GFR 15-29 5 Kidney failure <15 (or dialysis) 20 Monospot added per pathologist's request. 21 Lymphocytosis noted. Clinical correlation and follow-up suggested. 22 Assay by Chemiluminescence microparticle immunoassay on the [employer]. Values obtained with different methods or kits cannot be used interchangeably for patient monitoring. Results cannot be interpreted as absolute evidence of the presence or absence of malignancy. The test is not interpretable in . 23 SEE RESULT BELOW Name: GUSTAVO DEVLIN : [address]: Jane Rm DO Acct: [id number] Unit: [id number] AGE: 81 Location: [place] [address] Re05/19/16 SEX: F Status: ADM IN SPEC: [id number] HEAVEN: 05/18/16-[address] [facility] DR: Glynn Han MD REQ: [id number] RECD: 05/18/16 STATUS: DAV ENRIQUEZ DR: Elle Pearson MD _ SOURCE: SPUTUM SPDESC: ORDERED: Sputum Cult/GS Procedure Result Reported Site Sputum Smear Final 05/19/16- 0420 ML 4+ Neutrophils 1+ Epithelial Cells 3+ Gram Negative Coccobacilli 3+ Gram Positive Cocci 2+ Gram Positive Bacilli Sputum Culture Final 05/20/16- 1045 ML Organism 1 HAEMOPHILUS INFLUENZAE Quantity 3+ Beta Lactamase Negative Organism 2 NORMAL MAXWELL Quantity 1+ * ML - MAIN LAB ([facility]) . END OF REPORT * ML=Testing performed at Main Lab DEPARTMENT OF PATHOLOGY, [address] [place] [address] Elvin Zarate M.D. Director [facility] # [id number] 24 Acute inflammation: >10.00 25 SEE RESULT BELOW Name: GUSTAVO DEVLIN : [address]: Yocasta Ramirez DO Acct: [id number] Unit: [id number] AGE: 81 Location: [place] [address] Re05/19/16 Dis: 05/22/16 SEX: F Status: DIS IN SPEC: [id number] HEAVEN: 05/18/16-[address] [facility] DR: Glynn Han MD REQ: [id number] RECD: 05/18/16 STATUS: COMP [facility] DR: Elle Pearson MD _ SOURCE: BLOOD,VENO SPDESC: ORDERED: Blood Cult Procedure Result Reported Site Aerobic Culture Bottle Final 05/23/16- 1624 ML No Growth Day 5 Anaerobic Culture Bottle Final 05/23/16- 1624 ML No Growth Day 5 * ML - MA[facility] LAB ([facility]) . END OF REPORT * ML=Testing performed at Main Lab DEPARTMENT OF PATHOLOGY, [address] [place] [address] Elvin Zarate M.D. Director [facility] # [id number] 26 Reference Range and Interpretation: TnI (ng/mL) Interpretation Less Than 0.03 ng/mL Not supportive of diagnosis of NC 0.03 - 0.50 ng/mL Indeterminate: suggest serial studies if clinically indicated. Greater than 0.5 ng/mL Consistent with diagnosis of NC 27 >100 to <200 pg/mL: likely compensated congestive heart failure (CHF) 200 to 400 pg/mL: likely moderate CHF >400 pg/mL: likely moderate to severe CHF 28 Because ethnic data is not always readily available, this report includes an eGFR for both -Americans and non- Americans. The National Kidney Disease Education Program (NKDEP) does not endorse the use of the MDRD equation for patients that are not between the ages of 18 and 70, are , have extremes of body size, muscle mass, or nutritional status, or are non- or non-. According to the National Kidney Foundation, irrespective of diagnosis, the stage of the disease is based on the level of kidney function: Stage Description GFR(mL/min/1.73 m(2)) 1 Kidney damage with normal or decreased GFR 90 2 Kidney damage with mild decrease in GFR 60-89 3 Moderate decrease in GFR 30-59 4 Severe decrease in GFR 15-29 5 Kidney failure <15 (or dialysis) 29 [facility] Severe Sepsis and Septic Shock Management Bundle Measure requires all lactic acids initially measuring >2.0 mmol/L be repeated. 30 1 sst 31 Protein electrophoresis scan will follow via computer, mail, or archivist military history delivery. 32 Normal Range 180 to 914 Indeterminate Range 145 to 180 Deficient Range <145 33 Because ethnic data is not always readily available, this report includes an eGFR for both -Americans and non- Americans. The National Kidney Disease Education Program (NKDEP) does not endorse the use of the MDRD equation for patients that are not between the ages of 18 and 70, are , have extremes of body size, muscle mass, or nutritional status, or are non- or non-. According to the National Kidney Foundation, irrespective of diagnosis, the stage of the disease is based on the level of kidney function: Stage Description GFR(mL/min/1.73 m(2)) 1 Kidney damage with normal or decreased GFR 90 2 Kidney damage with mild decrease in GFR 60-89 3 Moderate decrease in GFR 30-59 4 Severe decrease in GFR 15-29 5 Kidney failure <15 (or dialysis) 34 Assay by Chemiluminescence microparticle immunoassay on the [employer]. Values obtained with different methods or kits cannot be used interchangeably for patient monitoring. Results cannot be interpreted as absolute evidence of the presence or absence of malignancy. The test is not interpretable in . 35 Because ethnic data is not always readily available, this report includes an eGFR for both -Americans and non- Americans. The National Kidney Disease Education Program (NKDEP) does not endorse the use of the MDRD equation for patients that are not between the ages of 18 and 70, are , have extremes of body size, muscle mass, or nutritional status, or are non- or non-. According to the National Kidney Foundation, irrespective of diagnosis, the stage of the disease is based on the level of kidney function: Stage Description GFR(mL/min/1.73 m(2)) 1 Kidney damage with normal or decreased GFR 90 2 Kidney damage with mild decrease in GFR 60-89 3 Moderate decrease in GFR 30-59 4 Severe decrease in GFR 15-29 5 Kidney failure <15 (or dialysis) 36 RUN DATE: 04/14/14 LAB LIVE PAGE 1 RUN TIME: [address] [place] [address] Specimen Inquiry Name: GUSTAVO DEVLIN : [address]: Zeus Mijares MD Acct: [id number] Unit: [id number] AGE: 79 Location: ED Re04/12/14 SEX: F Status: DEP ER SPEC: [id number] HEAVEN: 04/12/[address] [facility] DR: Zeus Mijares MD REQ: [id number] RECD: 04/12/14 STATUS: DAV ENRIQUEZ DR: Elle Pearson MD _ SOURCE: URINE SPDESC: ORDERED: Urine Culture QUERIES: Urine Source: Random Procedure Result Verified Site Urine Culture Final 04/14/14- 1056 ML Organism 1 NORMAL MAXWELL [place] Count 75-100,000 (Many) CFU/ML END OF REPORT * ML=Testing performed at Main Lab DEPARTMENT OF PATHOLOGY, [address] [place] [address] Elvin Zarate M.D. Director [facility] # [id number] 37 Because ethnic data is not always readily available, this report includes an eGFR for both -Americans and non- Americans. The National Kidney Disease Education Program (NKDEP) does not endorse the use of the MDRD equation for patients that are not between the ages of 18 and 70, are , have extremes of body size, muscle mass, or nutritional status, or are non- or non-. According to the National Kidney Foundation, irrespective of diagnosis, the stage of the disease is based on the level of kidney function: Stage Description GFR(mL/min/1.73 m(2)) 1 Kidney damage with normal or decreased GFR 90 2 Kidney damage with mild decrease in GFR 60-89 3 Moderate decrease in GFR 30-59 4 Severe decrease in GFR 15-29 5 Kidney failure <15 (or dialysis) 38 Reference Range and Interpretation: TnI (ng/mL) Interpretation Less Than 0.03 ng/mL Not supportive of diagnosis of NC 0.03 - 0.50 ng/mL Indeterminate: suggest serial studies if clinically indicated. Greater than 0.5 ng/mL Consistent with diagnosis of NC 39 Acute inflammation: >10.00 40 Because ethnic data is not always readily available, this report includes an eGFR for both -Americans and non- Americans. The National Kidney Disease Education Program (NKDEP) does not endorse the use of the MDRD equation for patients that are not between the ages of 18 and 70, are , have extremes of body size, muscle mass, or nutritional status, or are non- or non-. According to the National Kidney Foundation, irrespective of diagnosis, the stage of the disease is based on the level of kidney function: Stage Description GFR(mL/min/1.73 m(2)) 1 Kidney damage with normal or decreased GFR 90 2 Kidney damage with mild decrease in GFR 60-89 3 Moderate decrease in GFR 30-59 4 Severe decrease in GFR 15-29 5 Kidney failure <15 (or dialysis) 41 Assay by Chemiluminescence microparticle immunoassay on the [employer]. Values obtained with different methods or kits cannot be used interchangeably for patient monitoring. Results cannot be interpreted as absolute evidence of the presence or absence of malignancy. The test is not interpretable in . 42 result anitha'd 43 result anitha'd 44 Because ethnic data is not always readily available, this report includes an eGFR for both -Americans and non- Americans. The National Kidney Disease Education Program (NKDEP) does not endorse the use of the MDRD equation for patients that are not between the ages of 18 and 70, are , have extremes of body size, muscle mass, or nutritional status, or are non- or non-. According to the National Kidney Foundation, irrespective of diagnosis, the stage of the disease is based on the level of kidney function: Stage Description GFR(mL/min/1.73 m(2)) 1 Kidney damage with normal or decreased GFR 90 2 Kidney damage with mild decrease in GFR 60-89 3 Moderate decrease in GFR 30-59 4 Severe decrease in GFR 15-29 5 Kidney failure <15 (or dialysis) 45 Assay by Chemiluminescence microparticle immunoassay on the [employer]. Values obtained with different methods or kits cannot be used interchangeably for patient monitoring. Results cannot be interpreted as absolute evidence of the presence or absence of malignancy. The test is not interpretable in . 46 result anitha'd 47 result anitha'd 48 RESULT ERCKD' 49 RESULT ANITHA'D 50 FASTING; 1 sst 51 Normal serum protein electrophoresis. 52 Anion gap measurement may be of limited value in the presence of any alkalosis, especially in a combined acid base disorder. . 53 A metabolite of Naproxen, O-desmethylnaproxen, has been shown to interfere with the Jendrassik-Lali method for measuring total bilirubin. Samples from patients who have taken Naproxen have shown spurious elevation in total bilirubin levels. 54 Because ethnic data is not always readily available, this report includes an eGFR for both -Americans and non- Americans. The National Kidney Disease Education Program (NKDEP) does not endorse the use of the MDRD equation for patients that are not between the ages of 18 and 70, are , have extremes of body size, muscle mass, or nutritional status, or are non- or non-. According to the National Kidney Foundation, irrespective of diagnosis, the stage of the disease is based on the level of kidney function: Stage Description GFR(mL/min/1.73 m(2)) 1 Kidney damage with normal or decreased GFR 90 2 Kidney damage with mild decrease in GFR 60-89 3 Moderate decrease in GFR 30-59 4 Severe decrease in GFR 15-29 5 Kidney failure <15 (or dialysis) 55 ASSAY BY CHEMILUMINESCENCE MICROPARTICLE IMMUNOASSAY ON THE [employer]. VAKUES OBTAINED WITH DIFFERENT METHODS OR KITS CANNOT BE USED INTERCHANGEABLY FOR PATIENT MONITORING. RESULTS CANNOT BE INTERPRETED ABSOLUTE EVIDENCE OF THE PRESENCE OR ABSENCE OF MALIGNANCY. THE TEST IS NOT INTERPRETABLE IN . 56 ANION GAP MEASUREMENT MAY BE OF LIMITED VALUE IN THE PRESENCE OF ANY ALKLOSIS, ESPECIALLY IN A COMBINED ACID BASE DISORDER. Procedures Date CPT Code Description Status 09/27/2016 61141 Pulse Oximetry Completed 09/27/2016 11679 Nebulizer Treatment Completed 09/24/2016 59716 Nebulizer Treatment Completed 06/24/2016 Mammogram Completed 05/27/2016 83358 Pulse Oximetry Completed 05/18/2016 97530 Pulse Oximetry Completed 02/21/2016 31097 Remove Impact Cerumen Irrigati Completed 11/13/2015 17617 Pulse Oximetry Completed 06/23/2015 Mammogram Completed 09/19/2014 45650 Pulse Oximetry Completed 09/07/2014 25475 Pulse Oximetry Completed 06/22/2014 Mammogram Completed 05/27/2014 Mammogram Completed 01/12/2013 77570 Electrocardiogram Complete Completed 06/16/2012 Mammogram Completed 05/09/2012 Mammogram Completed 06/14/2011 Mammogram Completed 06/19/2010 Mammogram Completed 03/16/2010 04505 Electrocardiogram Complete Completed 06/13/2009 Mammogram Completed 02/22/2009 Colonoscopy Completed 06/27/2008 Mammogram Completed 06/16/2007 Mammogram Completed 06/09/2006 Mammogram Completed 01/15/2006 Mammogram Completed 03/07/2005 31267 Pulse Oximetry Completed 02/09/2003 51128 Electrocardiogram Complete Completed 06/15/1997 07431 Electrocardiogram Complete Completed Encounters Type Date Location Provider CPT E/M Dx Office Visit 03/28/2017 9:10a Main Office Elle Pearson M.D. 75772 C49.10 R05 Office Visit 02/27/2017 9:40a Main Office Elle Pearson M.D. 95549 C49.10 Office Visit 01/23/2017 11:30a Main Office [place] 85712 I80.00 Office Visit 10/15/2016 2:00p [facility] Elle Pearson M.D. 33831 D17.1 Office Visit 09/27/2016 10:00a Main Office [place] 06646 R05 J44.1 Office Visit 09/24/2016 9:40a [facility] Марина Murillo M.D. 05202 R05 J44.1 Office Visit 08/05/2016 9:10a Main Office Elle Pearson M.D. 15446 B37.0 Office Visit 06/26/2016 11:10a Main Office Elle Pearson M.D. 38333 J44.1 Office Visit 05/27/2016 2:40p Main Office Elle Pearson M.D. 17238 J44.1 Office Visit 05/18/2016 11:50a Main Office Марина Murillo M.D. 92827 J44.1 R06.02 Office Visit 04/25/2016 10:45a [place] [address] S00.83xA S50.01xA S70.01xA S80.01xA H69.83 Office Visit 11/13/2015 9:00a Main Office Elle Pearson M.D. 26421 R05 J30.9 J98.4 Office Visit 09/18/2015 9:40a Main Office Elle Pearson M.D. 20328 R05 Office Visit 09/11/2015 10:20a Main Office Elle Pearson M.D. 66279 J20.8 Office Visit 08/02/2015 8:00a Main Office Elle Pearson M.D. 10170 I10 R20.0 Office Visit 07/15/2015 10:20a Main Office Elle Pearson M.D. 75779 I10 R20.0 Office Visit 07/05/2015 1:45p Main Office [place] 68483 J06.9 Office Visit 09/30/2014 4:00p Main Office Elle Pearson M.D. 72611 786.2 Office Visit 09/19/2014 11:00a Main Office Elle Pearson M.D. 98877 786.2 Office Visit 09/07/2014 10:10a Main Office Elle Pearson M.D. 42069 401.1 466.0 Office Visit 08/10/2014 11:20a Main Office Elle Pearson M.D. 05072 401.1 Office Visit 05/11/2014 9:00a Main Office Elle Pearson M.D. 33051 401.1 272.4 Office Visit 04/19/2014 1:20p [facility] Elle Pearson M.D. 17945 401.1 272.4 Office Visit 07/13/2013 2:00p [facility] Elle Pearson M.D. 08985 786.05 Office Visit 01/12/2013 3:00p [facility] Elle Pearson M.D. 75451 787.3 Office Visit 11/18/2012 2:40p Main Office Elle Pearson M.D. 33262 401.1 272.4 366.8 V72.83 Office Visit 05/15/2012 10:20a Main Office Elle Pearson M.D. 34071 401.1 272.4 V70.0 V06.5 Office Visit 03/18/2012 1:10p Main Office Elle Pearson M.D. 74467 401.1 782.1 Office Visit 01/13/2012 10:00a Main Office Elle Pearson M.D. 89587 401.1 785.1 Office Visit 12/23/2011 2:20p Main Office Elle Pearson M.D. 76714 401.1 785.1 Office Visit 07/24/2011 3:10p Main Office Ellyn White M.D. 36546 709.8 V65.49 Office Visit 07/01/2011 3:10p [facility] Ellyn White M.D. 81480 709.8 Office Visit 04/26/2011 10:20a Main Office Elle Pearson M.D. 89067 791.7 337.1 401.1 716.90 780.79 Office Visit 12/20/2010 11:30a Main Office Rakesh Schafer M.D. 50209 466.0 Office Visit 03/16/2010 10:20a Main Office Elle Pearson M.D. 06918 401.1 716.90 780.79 Office Visit 05/22/2009 9:20a Main Office Elle Pearson M.D. 17428 401.1 Office Visit 03/15/2009 1:00p Main Office Elle Pearson M.D. 78512 401.1 Office Visit 02/13/2009 1:40p Main Office Elle Pearson M.D. 84246 401.1 Office Visit 01/04/2009 4:00p Main Office Elle Pearson M.D. 45151 789.07 Office Visit 04/14/2007 10:30a Main Office Do Gabrielle, [facility] 32496 V06.5 V06.4 V74.1 V70.5 Office Visit 03/07/2005 12:20p Main Office Everette Pabon M.D. 67680 466.0 Office Visit 04/20/2003 2:40p Main Office Elle Pearson M.D. 40823 V72.84 366.9 Office Visit 02/09/2003 7:20p Main Office Elle Pearson M.D. 61621 V70.0 Office Visit 01/10/2003 9:45a Main Office Shruti English [facility] 55438 466.0 461.9 Office Visit 05/04/2001 12:00p Main Office Elle Pearson M.D. 06102 Office Visit 04/23/2001 3:00p Main Office Everette Pabon M.D. 14093 Plan of Care Future Appointment(s):11/10/2017 9:20 am - Elle Pearson M.D. at Main [facility]10/08/2017 - Do Anthony, [id number] EpistaxisComments:To prevent another nose bleed, keep nasal passages moist.You may use saline nasal spray in each nostril twice a day and vaseline in your nostrils.Use a humidifier at home to keep the air moist.If you get another nose bleed, pinch the bridge of your nose and lean forward. If it persists, call EMS.Follow up:Followup: as needed.
[2017-10-10 18:00] LABS: Hematocrit 37 % (35-47); Hemoglobin 12.6 g/dl (12.0-16.0); Mean Corpuscular HGB Conc 34 g/dl (31-36); Mean Corpuscular Hemoglobin 32 pg (27-31); Mean Corpuscular Volume 94 fL (80-97); Mean Platelet Volume 8 um3 (7.4-10.4); Platelet Count 246 10^3/ul (150-450); Red Blood Count 3.98 10^6/ul (4.0-5.4); Red Cell Distribution Width 14 % (10.5-15); White Blood Count 6.4 10^3/ul (3.5-10.8)
[2017-10-10 18:14] LABS: INR 0.94 (0.77-1.02)
[2017-10-10 18:16] LABS: ABS Basophils 0.1 10^3/ul (0-0.2); ABS Eosinophils 0.1 10^3/ul (0-0.6); ABS Lymphocytes 1.5 10^3/ul (1.0-4.8); ABS Monocytes 0.6 10^3/ul (0-0.8); ABS Nucleated RBC 0 10^3/ul; Eosinophil % 1.8 % (0-6); Lymphocyte % 24.5 % (25-47); Nucleated Red Blood Cells % 0
[2017-10-10 18:25] LABS: EGFR Non-African American 115.7 (>60)
[2017-10-10 18:48] VITALS: BP 141/77
--- NOTE | 2017-10-10 20:57 | ED ---
Throat Pain/Nasal Congestion - HPI Summary HPI Summary: Patient presents to the ED with epistaxis intermittently 5 hours. She states she was able to get the bleeding under control with nasal pinchers that were given to her in the ED 3 days ago when she was seen here for the same thing. History of COPD and recent oxygen usage which has dried out her bilateral naris. She has tried to use Neosporin and humidifier in the home (which she purchased just 2 day) for relief. She has never had epistaxis before. First episode was 3 days ago and has been fine since that time until this afternoon. She denies any known clotting disorders and is not taking any blood thinners. She states the bleeding is coming out of her bilateral nares, one not worse than the other. Denies swallowing any bleeding. Vital signs are stable. - History of Current Complaint Chief Complaint: EDEpistaxis Time Seen by Provider: 10/10/17 17:34 Hx Obtained From: Patient Onset/Duration: Gradual Onset Severity: Moderate - Epiglottits Risk Factors Epiglottis Risk Factors: Negative - Allergies/Home Medications Allergies/Adverse Reactions: Allergies Allergy/AdvReac Type Severity Reaction Status Date / Time MS Lactose Intolerance Allergy Diarrhea Verified 11/12/16 11:49 [Lactose Intolerance] MS Metoprolol [Metoprolol] Allergy PSORASIS Verified 11/12/16 11:49 RASH PMH/Surg Hx/FS Hx/Imm Hx Previously Healthy: Yes Endocrine/Hematology History: Denies: Hx Diabetes Cardiovascular History: Reports: Hx Deep Vein Thrombosis, Hx Hypercholesterolemia, Hx Hypertension, Other Cardiovascular Problems/Disorders - 1961 AND 1962 PHLEBITIS AFTER CHILDBIRTH RIGHT LEG Denies: Hx Pacemaker/ICD Respiratory History: Reports: Hx Chronic Obstructive Pulmonary Disease (COPD), Other Respiratory Problems/Disorders - RESPIRATORY INFECTION 3 YEARS AGO GI History: Reports: Other GI Disorders - LACTOSE INTOLERANT History: Denies: Hx Renal Disease Musculoskeletal History: Reports: Hx Arthritis - RIGHT HAND, BILATERAL TOES, Other Musculoskeletal History - BONE SPURS ON CERVICAL VERTEBRAE Sensory History: Reports: Hx Contacts or Glasses Denies: Hx Hearing Aid Opthamlomology History: Reports: Hx Contacts or Glasses Neurological History: Reports: Other Neuro Impairments/Disorders - Idiopathic neuropathy Psychiatric History: Denies: Hx Panic Disorder - Cancer History Cancer Type, Location and Year: 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 MYXOIDSARCOMA Hx Chemotherapy: No Hx Radiation Therapy: Yes - Surgical History Surgery Procedure, Year, and Place: 2004 lumpectomy left breast, [facility] [place]. 1954 TONSILLECTOMY, [facility]. 1987 HYSTERECTOMY, [facility]. 2002 LEFT CATARACT EXTRACTION WITH IOL IMPLANT,. SKIN CANCER - BASAL CELL AND SQAMOUS CELL , OFFICE. 2013 - Rt CATARACT Hx Anesthesia Reactions: No - Immunization History Date of Tetanus Vaccine: unknown Date of Influenza Vaccine: 2013 Hx Pertussis Vaccination: No Immunizations Up to Date: Unable to Obtain/Confirm Infectious Disease History: No Infectious Disease History: Denies: Traveled Outside the [place] in Last 30 Days - Family History Known Family History: Positive: Hypertension - Social History Occupation: Retired Lives: Assisted Living Alcohol Use: Occasionally Alcohol Amount: glass of wine Hx Substance Use: No Substance Use Type: Reports: None Smoking Status (MU): Former Smoker Type: Cigarettes Review of Systems Constitutional: Negative Negative: Fever, Chills, Fatigue Eyes: Negative Positive: Epistaxis Respiratory: Negative Gastrointestinal: Negative Positive: no symptoms reported, see HPI Musculoskeletal: Negative Skin: Negative All Other Systems Reviewed And Are Negative: Yes Physical Exam Triage Information Reviewed: Yes Vital Signs On Initial Exam: Initial Vitals Temp Pulse Resp BP Pulse Ox 99.5 F 124 18 136/84 94 10/10/17 15:29 10/10/17 15:29 10/10/17 15:29 10/10/17 15:29 10/10/17 15:29 Vital Signs Reviewed: Yes Appearance: Positive: Well-Appearing, Well-Nourished Skin: Positive: Warm, Skin Color Reflects Adequate Perfusion Head/Face: Positive: Normal Head/Face Inspection Eyes: Positive: EOMI, CIRA, Conjunctiva Clear ENT: Positive: Normal ENT inspection, Other - No bleeding or lesions visualized with nasal speculum Neck: Positive: Supple, No Lymphadenopathy Respiratory/Lung Sounds: Positive: Clear to Auscultation, Breath Sounds Present Cardiovascular: Positive: RRR, Pulses are Symmetrical in both Upper and Lower Extremities Musculoskeletal: Positive: Strength/ROM Intact Neurological: Positive: Speech Normal Psychiatric: Positive: Affect/Mood Appropriate Diagnostics - Vital Signs Vital Signs Temp Pulse Resp BP Pulse Ox 10/10/17 18:57 98.7 F 88 16 141/77 95 10/10/17 18:30 80 141/77 93 10/10/17 18:03 93 92 10/10/17 18:00 149/76 02/02/18 17:40 83 94 10/10/17 17:30 85 148/78 93 10/10/17 17:15 97 155/80 95 10/10/17 17:00 102 92 10/10/17 16:30 97 158/80 90 10/10/17 16:11 99 91 10/10/17 16:10 99 152/81 91 10/10/17 15:47 108 168/86 91 10/10/17 15:29 99.5 F 124 18 136/84 94 - Laboratory Lab Results: Lab Results 10/10/17 10/10/17 10/10/17 Range/Units 17:50 17:50 17:50 WBC 6.4 (3.5-10.8) 10^3/ul RBC 3.98 L (4.0-5.4) 10^6/ul Hgb 12.6 (12.0-16.0) g/dl Hct 37 (35-47) % MCV 94 (80-97) fL MCH 32 H (27-31) pg MCHC 34 (31-36) g/dl RDW 14 (10.5-15) % Plt Count 246 (150-450) 10^3/ul MPV 8 (7.4-10.4) um3 Neut % (Auto) 63.1 (38-83) % Lymph % (Auto) 24.5 L (25-47) % [place] % (Auto) 9.7 H (1-9) % Eos % (Auto) 1.8 (0-6) % Baso % (Auto) 0.9 (0-2) % Absolute Neuts (auto) 4.0 (1.5-7.7) 10^3/ul Absolute Lymphs (auto) 1.5 (1.0-4.8) 10^3/ul Absolute Monos (auto) 0.6 (0-0.8) 10^3/ul Absolute Eos (auto) 0.1 (0-0.6) 10^3/ul Absolute Basos (auto) 0.1 (0-0.2) 10^3/ul Absolute Nucleated RBC 0 10^3/ul Nucleated RBC % 0 INR (Anticoag Therapy) 0.94 (0.77-1.02) APTT 32.8 (26.0-36.3) seconds Sodium 137 (133-145) mmol/L Potassium 3.6 (3.5-5.0) mmol/L Chloride 100 L (101-111) mmol/L Carbon Dioxide 29 (22-32) mmol/L Anion Gap 8 (2-11) mmol/L BUN 14 (6-24) mg/dL Creatinine 0.51 (0.51-0.95) mg/dL Est GFR ( Amer) 148.8 (>60) Est GFR (Non-Af Amer) 115.7 (>60) BUN/Creatinine Ratio 27.5 H (8-20) Glucose 101 H (70-100) mg/dL Calcium 9.7 (8.6-10.3) mg/dL Total Bilirubin 0.60 (0.2-1.0) mg/dL AST 13 (13-39) U/L ALT 10 (7-52) U/L Alkaline Phosphatase 71 (34-104) U/L Total Protein 6.9 (6.4-8.9) g/dL Albumin 4.1 (3.2-5.2) g/dL Globulin 2.8 (2-4) g/dL Albumin/Globulin Ratio 1.5 (1-3) Result Diagrams: 10/10/17 17:50 10/10/17 17:50 Lab Statement: Any lab studies that have been ordered have been reviewed, and results considered in the medical decision making process. EENT Course/Dx - Course Course Of Treatment: During the course of treatment, the patient is evaluated for epistaxis. On arrival, bleeding is controlled and epistaxis has ceased. PT and INR obtained and compared to previous visit. Type and cross not obtained at this time. PT/INR within normal limits. I have discussed labs with patient and feel she needs to see ENT for any lesion in the air. On physical exam using a nasal speculum, there is no obvious lesion that I am able to visualize and no bleeding currently. At home, she states she has been using the nasal pinchers for 10 minutes at a time and then removing them. I have advised she keep him on for 20-30 minutes if she is able to tolerate it. If she is unable to control bleeding at home, I have advised her to return to the ED. She will follow-up with ENT and I have made a referral. She is okay with discharge at this time and voices no concerns. - Diagnoses Provider Diagnoses: Epistaxis Discharge - Discharge Plan Condition: Stable Disposition: HOME Patient Education Materials: Nosebleed (ED) Referrals: Samson Irby MD [Medical Doctor] - Rajinder Pearson MD [Primary Care Provider] - Additional Instructions: As discussed, please follow-up with Dr. Irby If you develop another nosebleed, place the pinchers on for at least 20 minutes and try to stay as long as 30 minutes If this fails to improve after 2-3 times, or you become dizzy or lightheaded please return to the ED immediately Get up from a sitting position very slowly Make sure you have a humidifier in the home Use your oxygen as prescribed Vaseline to the bilateral nares if you feel dry
== END 2017-10-10 18:57 | disposition home or self-care (01) ==
LOC: ED 15:21
DX: R04.0 Epistaxis (principal); Z88.8 Allergy status to other drugs, medicaments and biological substances; Z87.891 Personal history of nicotine dependence
CPT/HCPCS: 36415; 80053; 85025; 85610; 85730; 93005; 99282